=== PATIENT | female | born 1965 | race Caucasian/White ===

== ENCOUNTER → 2017-01-23 | Outpatient (CLI) | payer BC ==
--- NOTE | 2017-01-23 15:00 | US ---
EXAMINATION TYPE: US venous doppler duplex LE DATE OF EXAM: 01/23/2017 2:41 PM COMPARISON: NONE CLINICAL HISTORY: Swelling Left leg R22.42,R22.41 Swelling Rt leg. Right leg swelling. Left leg swel ling and numbness from upper thigh to knee. No blood thinners or hx of DVT. SIDE PERFORMED: Bilateral TECHNIQUE: The lower extremity deep venous system is examined utilizing real time linear array sonog vivain with graded compression, doppler sonography and color-flow sonography. VESSELS IMAGED: External Iliac Vein (EIV) Common Femoral Vein Deep Femoral Vein Greater Saphenous Vein * Femoral Vein Popliteal Vein Small Saphenous Vein * Proximal Calf Veins (* superficial vessels) Right Leg: Appears negative for DVT Left Leg: Appears negative for DVT No popliteal fossa lesion is seen. IMPRESSION: THIS EXAMINATION IS NEGATIVE FOR DVT IN BOTH LEGS.
== END | disposition home or self-care (01) ==
LOC: RADUSWWP 14:08
PROVIDERS: ATTEND Internal Medicine Hematology & Oncology
DX: M79.662 Pain in left lower leg (principal); M79.661 Pain in right lower leg; R22.43 Localized swelling, mass and lump, lower limb, bilateral
CPT/HCPCS: 93970

== ENCOUNTER → 2017-06-10 | Outpatient (CLI) | payer BC ==
--- NOTE | 2017-06-11 08:46 | MM ---
Reason for exam: additional evaluation requested from prior study. Last mammogram was performed 1 year ago. History: Patient is postmenopausal, has history of breast cancer at age 49, and history of other cancer. Lumpectomy, 2016. Radiation therapy, 2016. Malignant US biopsy breast VAD RT of the right breast, September 13, 2015. Took hormonal contraceptives for 10 years beginning at age 18. Taking antineoplastic beginning at age 50. Physical Findings: Nurse did not find any significant physical abnormalities on exam. MG 3D Diag Mammo W/Cad LOUIE Bilateral CC and MLO view(s) were taken. Prior study comparison: June 09, 2016, bilateral MG 3d diag mammo w/cad LOUIE. September 13, 2015, right breast MG diagnostic mammo RT wo CAD. There are scattered fibroglandular densities. Post therapy change in the right breast. These results were verbally communicated with the patient and result sheet given to the patient on 06/10/17. ASSESSMENT: Benign, BI-RAD 2 RECOMMENDATION: Follow-up diagnostic mammogram of both breasts in 1 year.
== END | disposition home or self-care (01) ==
LOC: RADMAMWWP 14:03
PROVIDERS: ATTEND Radiology Diagnostic Radiology
DX: Z08 Encounter for follow-up examination after completed treatment for malignant neoplasm (principal); Z85.3 Personal history of malignant neoplasm of breast
CPT/HCPCS: G0204; G0279

== ENCOUNTER 2017-10-27 11:15 | Emergency (ER) | payer BC ==
[2017-10-27 11:26] VITALS: TEMP 98.2
[2017-10-27] MEDS ORDERED: SODIUM CHLORIDE 0.9% 1,000 ML IV STA (11:39)
[2017-10-27] MEDS ORDERED: KETOROLAC 30 MG/ML 1 ML VIAL IVP STA (11:39)
[2017-10-27] MEDS ORDERED: ONDANSETRON 4 MG/2 ML VIAL IVP STA (11:39)
--- NOTE | 2017-10-27 11:44 | ED ---
General Adult HPI - General Chief complaint: Abdominal Pain Stated complaint: Poss.kidney stones Time Seen by Provider: 10/27/17 11:27 Source: patient, RN notes reviewed Mode of arrival: ambulatory Limitations: no limitations - History of Present Illness Initial comments: 51 yo female presents to the ER with chief complaint of right-sided abdominal pain. This week ago and over the last day or so she started to have some nausea with this. She went to the urgent care he now some blood in the urine and sent her here to evaluate for kidney stones. She denies any history of abdominal surgeries. Only past medical history is a history of breast cancer in the past. She states she hasn't had any burning or stinging with urination. She states that it's in the center of her abdomen in the right side. She was concerned due to her continued symptoms so she thought that she should be evaluated. Patient denies any recent fever, chills, shortness of breath, chest pain, back pain,vomiting, numbness or tingling, dysuria, constipation or diarrhea, headaches or visual changes, or any other current symptoms. - Related Data Home Medications Medication Instructions Recorded Confirmed Ascorbic Acid [Vitamin C] 500 mg PO DAILY 10/27/17 10/27/17 Cholecalciferol (Vitamin D3) 2,000 unit PO DAILY 10/27/17 10/27/17 [Vitamin D3] Mv-Min/Vit C/Glut/Lysine/Hc124 1 tab PO DAILY 10/27/17 10/27/17 [Airborne Tablet Chewable] Tamoxifen Citrate 20 mg PO DAILY 10/27/17 10/27/17 Allergies Allergy/AdvReac Type Severity Reaction Status Date / Time No Known Allergies Allergy Verified 10/27/17 11:30 Review of Systems ROS Statement: Those systems with pertinent positive or pertinent negative responses have been documented in the HPI. ROS Other: All systems not noted in ROS Statement are negative. Past Medical History Past Medical History: Cancer Additional Past Medical History / Comment(s): breast History of Any Multi-Drug Resistant Organisms: None Reported Additional Past Surgical History / Comment(s): lumpectomy, partial hysto 2005 Past Psychological History: No Psychological Hx Reported Smoking Status: Never smoker Past Alcohol Use History: None Reported Past Drug Use History: None Reported General Exam - General Exam Comments Initial Comments: General: The patient is awake and alert, in no distress, and does not appear acutely ill. Eye: Pupils are equal, round and reactive to light, extra-ocular movements are intact; there is normal conjunctiva bilaterally. No signs of icterus. Ears, nose, mouth and throat: There are moist mucous membranes and no oral lesions. Neck: The neck is supple, there is no tenderness. Cardiovascular: There is a regular rate and rhythm. No murmur, rub or gallop is appreciated. Respiratory: Lungs are clear to auscultation, respirations are non-labored, breath sounds are equal. No wheezes, stridor, rales, or rhonchi. Gastrointestinal: Soft, non-distended, mild epigastric tenderness of the abdomen without masses or organomegaly noted. There is no rebound or guarding present. No CVA tenderness. Bowel sounds are unremarkable. Back: There is no tenderness to palpation in the midline. There is no obvious deformity. No rashes noted. Musculoskeletal: Normal ROM, no tenderness, There is no pedal edema. There is no calf tenderness or swelling. Sensation intact. Pulses equal bilaterally 2+. Neurological: CN II-XII intact, There are no obvious motor or sensory deficits. Coordination appears grossly intact. Speech is normal. Skin: Skin is warm and dry and no rashes or lesions are noted. Psychiatric: Cooperative, appropriate mood & affect, normal judgment. Limitations: no limitations Course Vital Signs 10/27/17 11:22 Temperature 98.2 F Pulse Rate 75 Respiratory 18 Rate Blood Pressure 160/77 O2 Sat by Pulse 98 Oximetry Medical Decision Making - Medical Decision Making 51-year-old female presents emergency department with chief complaint of abdominal pain. At this time CAT scan has been reviewed. At this time we did discuss follow-up. We did discuss the finding of biliary sludge we did discuss return parameters and lab work. The patient stated that she understood she is reviewed with follow-up and all questions have been answered. This time the patient will be discharged home. - Lab Data Result diagrams: 10/27/17 11:50 10/27/17 11:50 Lab Results 10/27/17 10/27/17 10/27/17 Range/Units 11:50 11:50 11:50 WBC 5.4 (3.8-10.6) k/uL RBC 4.60 (3.80-5.40) m/uL Hgb 13.7 (11.4-16.0) gm/dL Hct 41.3 (34.0-46.0) % MCV 89.8 (80.0-100.0) fL MCH 29.8 (25.0-35.0) pg MCHC 33.1 (31.0-37.0) g/dL RDW 12.7 (11.5-15.5) % Plt Count 223 (150-450) k/uL Neutrophils % 57 % Lymphocytes % 32 % Monocytes % 6 % Eosinophils % 2 % Basophils % 1 % Neutrophils # 3.1 (1.3-7.7) k/uL Lymphocytes # 1.7 (1.0-4.8) k/uL Monocytes # 0.3 (0-1.0) k/uL Eosinophils # 0.1 (0-0.7) k/uL Basophils # 0.0 (0-0.2) k/uL Sodium 141 (137-145) mmol/L Potassium 4.4 (3.5-5.1) mmol/L Chloride 104 (98-107) mmol/L Carbon Dioxide 28 (22-30) mmol/L Anion Gap 9 mmol/L BUN 15 (7-17) mg/dL Creatinine 0.95 (0.52-1.04) mg/dL Est GFR (MDRD) Af Amer >60 (>60 ml/min/1.73 sqM) Est GFR (MDRD) Non-Af >60 (>60 ml/min/1.73 sqM) Glucose 103 H (74-99) mg/dL Plasma Lactic Acid Zeke 1.1 (0.7-2.0) mmol/L Calcium 9.6 (8.4-10.2) mg/dL Total Bilirubin 0.5 (0.2-1.3) mg/dL AST 31 (14-36) U/L ALT 36 (9-52) U/L Alkaline Phosphatase 75 (38-126) U/L Total Protein 7.0 (6.3-8.2) g/dL Albumin 4.2 (3.5-5.0) g/dL Amylase 33 (30-110) U/L Lipase 48 (23-300) U/L Urine Color Urine Appearance (Clear) Urine pH (5.0-8.0) Ur Specific Ethan (1.001-1.035) Urine Protein (Negative) Urine Glucose (UA) (Negative) Urine Ketones (Negative) Urine Blood (Negative) Urine Nitrite (Negative) Urine Bilirubin (Negative) Urine Urobilinogen (<2.0) mg/dL Ur Leukocyte Esterase (Negative) Urine WBC (0-5) /hpf Ur Squamous Epith Cells (0-4) /hpf 10/27/17 Range/Units 11:50 WBC (3.8-10.6) k/uL RBC (3.80-5.40) m/uL Hgb (11.4-16.0) gm/dL Hct (34.0-46.0) % MCV (80.0-100.0) fL MCH (25.0-35.0) pg MCHC (31.0-37.0) g/dL RDW (11.5-15.5) % Plt Count (150-450) k/uL Neutrophils % % Lymphocytes % % Monocytes % % Eosinophils % % Basophils % % Neutrophils # (1.3-7.7) k/uL Lymphocytes # (1.0-4.8) k/uL Monocytes # (0-1.0) k/uL Eosinophils # (0-0.7) k/uL Basophils # (0-0.2) k/uL Sodium (137-145) mmol/L Potassium (3.5-5.1) mmol/L Chloride (98-107) mmol/L Carbon Dioxide (22-30) mmol/L Anion Gap mmol/L BUN (7-17) mg/dL Creatinine (0.52-1.04) mg/dL Est GFR (MDRD) Af Amer (>60 ml/min/1.73 sqM) Est GFR (MDRD) Non-Af (>60 ml/min/1.73 sqM) Glucose (74-99) mg/dL Plasma Lactic Acid Zeke (0.7-2.0) mmol/L Calcium (8.4-10.2) mg/dL Total Bilirubin (0.2-1.3) mg/dL AST (14-36) U/L ALT (9-52) U/L Alkaline Phosphatase (38-126) U/L Total Protein (6.3-8.2) g/dL Albumin (3.5-5.0) g/dL Amylase (30-110) U/L Lipase (23-300) U/L Urine Color Yellow Urine Appearance Clear (Clear) Urine pH 6.5 (5.0-8.0) Ur Specific Ethan 1.014 (1.001-1.035) Urine Protein Negative (Negative) Urine Glucose (UA) Negative (Negative) Urine Ketones 1+ H (Negative) Urine Blood Negative (Negative) Urine Nitrite Negative (Negative) Urine Bilirubin Negative (Negative) Urine Urobilinogen <2.0 (<2.0) mg/dL Ur Leukocyte Esterase Small H (Negative) Urine WBC 1 (0-5) /hpf Ur Squamous Epith Cells 3 (0-4) /hpf - Radiology Data Radiology results: report reviewed, image reviewed Disposition Clinical Impression: Hematuria, Biliary sludge Disposition: HOME SELF-CARE Condition: Stable Instructions: Biliary Colic (ED) Additional Instructions: Please use medication as discussed. Please follow up with family doctor if symptoms have not improved over the next two days. Please return to the emergency room if your symptoms increase or worsen or for any other concerns. Referrals: Lizzette Galindo DO [Primary Care Provider] - 1-2 days Phani Boyer MD [STAFF PHYSICIAN] - 1-2 days Time of Disposition: 12:36
[2017-10-27 12:01] LABS: Basophils % (A) 1 %; Eosinophils # (A) 0.1 k/uL (0-0.7); Eosinophils % (A) 2 %; HCT 41.3 % (34.0-46.0); HGB 13.7 gm/dL (11.4-16.0); Lymphocytes # (A) 1.7 k/uL (1.0-4.8); Lymphocytes % (A) 32 %; MCH 29.8 pg (25.0-35.0); MCHC 33.1 g/dL (31.0-37.0); MCV 89.8 fL (80.0-100.0); Monocytes # (A) 0.3 k/uL (0-1.0); Monocytes % (A) 6 %; Neutrophils # (A) 3.1 k/uL (1.3-7.7); Neutrophils % (A) 57 %; Platelet Count 223 k/uL (150-450); RDW 12.7 % (11.5-15.5); WBC 5.4 k/uL (3.8-10.6)
[2017-10-27 12:05] LABS: Appearance,Urine Clear (Clear); Bilirubin,Urine Negative (Negative); Blood,Urine Negative (Negative); Color,Urine Yellow; Glucose,Urine (UA) Negative (Negative); Ketones,Urine 1+ (Negative); Leukocyte Esterase,Urine Small (Negative); Nitrite,Urine Negative (Negative); PH, Urine 6.5 (5.0-8.0); Protein,Urine Negative (Negative); Specific Gravity,Urine 1.014 (1.001-1.035); Squamous Epithelial Cell,Urine 3 /hpf (0-4); Urobilinogen,Urine <2.0 mg/dL (<2.0); WBC,Urine 1 /hpf (0-5)
[2017-10-27 12:19] LABS: ALT 36 U/L (9-52); AST 31 U/L (14-36); Albumin 4.2 g/dL (3.5-5.0); Alkaline Phosphatase 75 U/L (38-126); Amylase 33 U/L (30-110); Anion Gap 9 mmol/L; Blood Urea Nitrogen 15 mg/dL (7-17); Calcium 9.6 mg/dL (8.4-10.2); Carbon Dioxide 28 mmol/L (22-30); Chloride 104 mmol/L (98-107); Glucose 103 mg/dL (74-99); Lipase 48 U/L (23-300); Potassium 4.4 mmol/L (3.5-5.1); Sodium 141 mmol/L (137-145); Total Bilirubin 0.5 mg/dL (0.2-1.3)
--- NOTE | 2017-10-27 12:25 | CT ---
EXAMINATION TYPE: CT abdomen pelvis wo con DATE OF EXAM: 10/27/2017 COMPARISON: NONE HISTORY: Renal stone CT DLP: 718.50 mGycm Automated exposure control for dose reduction was used. TECHNIQUE: Helical acquisition of images was performed from the lung bases through the pelvis. FINDINGS: LUNG BASES: Minimal bibasilar subsegmental dependent atelectasis is seen. LIVER/GB: There is diffuse hypoattenuation of the hepatic parenchyma, most commonly related to hepati c steatosis that is geographically lower than others throughout the liver. Increased layering signal within the gallbladder dependently relates to biliary sludge. PANCREAS: Mild pancreatic parenchymal atrophy. No ductal dilatation. SPLEEN: No significant abnormality is seen. ADRENALS: No significant abnormality is seen. KIDNEYS: No hydronephrosis or nephrolithiasis. Multiple phleboliths are noted within the low pelvis a djacent to the ureterovesicular junctions. FREE AIR: No free air is visualized ADENOPATHY: None visualized URINARY BLADDER: No significant abnormality is seen. OSSEOUS STRUCTURES: Mild multilevel degenerative changes of the thoracic spine and lumbosacral spine are noted. Mild levoconvex scoliotic curvature of the lumbar spine are seen. BOWEL: Scattered colonic diverticula are seen without pericolonic fat stranding. OTHER: Small fat filled umbilical hernia is present. IMPRESSION: 1. NO EVIDENCE OF NEPHROLITHIASIS OR HYDRONEPHROSIS. CONSIDERING THE PATIENT'S SYMPTOMS OF MICROSCOPI C HEMATURIA NONEMERGENT CT UROGRAM COULD BE PERFORMED FOR FURTHER EVALUATION. 2. GEOGRAPHIC HEPATIC STEATOSIS APPEARING MODERATE IN DEGREE. 3. BILIARY SLUDGE. NO SECONDARY SIGNS OF ACUTE CHOLECYSTITIS. 4. COLONIC DIVERTICULOSIS WITHOUT EVIDENCE OF DIVERTICULITIS.
[2017-10-27 12:47] VITALS: BP 140/73; PULSE 77; RESP 16
== END 2017-10-27 12:48 | disposition home or self-care (01) ==
LOC: EC 11:15
DX: K82.9 Disease of gallbladder, unspecified (principal); R31.9 Hematuria, unspecified; R10.9 Unspecified abdominal pain; Z85.3 Personal history of malignant neoplasm of breast; Z79.899 Other long term (current) drug therapy; Z53.29 Procedure and treatment not carried out because of patient's decision for other reasons; Z98.890 Other specified postprocedural states
CPT/HCPCS: 36415; 74176; 80053; 81001; 82150; 83605; 83690; 85025; 87040; 87086; 96360; 99284

== ENCOUNTER 2017-11-02 08:41 | Day surgery (SDC) | payer BC ==
[2017-10-29 09:47] VITALS: BMI 34.3
[~2017-11-02 08:41] MED LIST: DEXAMETHASONE SOD PHOSPHATE 10 MG/ML 1 ML VIAL IV ONE; HEPARIN SODIUM,PORCINE 5,000 UNIT/ML 1 ML VIAL SQ ONE; LACTATED RINGERS 1,000 ML IV SCH; MIDAZOLAM 2 MG/2 ML VIAL IV PRN; MORPHINE SULFATE 4 MG/ML SYRINGE IV PRN; ONDANSETRON 4 MG/2 ML VIAL IVP ONE; SCOPOLAMINE 1.5MG/72HR PATCH TRANSDERM ONE; ceFAZolin IN SWFI 2 GM/20 ML SYRINGE IVP ONE
--- NOTE | 2017-11-02 09:42 | P.GSHP ---
History of Present Illness H&P Date: 11/02/17 Chief Complaint: Right upper quadrant pain This a 52-year-old female referred from Dr. George. Patient presents today for laparoscopic cholecystectomy. She's had complaints of right quadrant pain. Her recent CAT scan shows evidence of cholelithiasis and biliary sludge. Past Medical History Past Medical History: Cancer Additional Past Medical History / Comment(s): Rt. breast History of Any Multi-Drug Resistant Organisms: None Reported Past Surgical History: Breast Surgery, Hysterectomy Additional Past Surgical History / Comment(s): Rt. lumpectomy, Past Anesthesia/Blood Transfusion Reactions: Postoperative Nausea & Vomiting ( PONV) Additional Past Anesthesia/Blood Transfusion Reaction / Comment(s): "hard time waking up" Smoking Status: Never smoker - Past Family History Father Family Medical History: Cancer Additional Family Medical History / Comment(s): lung Medications and Allergies Home Medications Medication Instructions Recorded Confirmed Type Ascorbic Acid [Vitamin C] 500 mg PO DAILY 10/27/17 10/29/17 History Cholecalciferol (Vitamin D3) 2,000 unit PO DAILY 10/27/17 10/29/17 History [Vitamin D3] Mv-Min/Vit C/Glut/Lysine/Hc124 1 tab PO DAILY 10/27/17 10/29/17 History [Airborne Tablet Chewable] RX: Tamoxifen Citrate 20 mg PO DAILY 10/27/17 10/29/17 History Cipro 1 tab PO DIRECTED 10/29/17 History Allergies Allergy/AdvReac Type Severity Reaction Status Date / Time PAIN MEDS AdvReac Nausea & Uncoded 10/29/17 09:48 Vomiting Surgical - Exam - General well developed, no distress - Eyes PERRL - ENT normal pinna - Neck no masses - Respiratory normal expansion - Cardiovascular Rhythm: regular - Abdomen Mild right upper quadrant pain Abdomen: soft Assessment and Plan Assessment: Cholelithiasis Chronic cholecystitis We'll perform laparoscopic cholecystectomy
[2017-11-02] MEDS ORDERED: LIDOCAINE 1% 20 ML VIAL (10MG/ML) FOR IV START INTRADERMA ONE (09:50)
[2017-11-02] MEDS ORDERED: KETOROLAC 30 MG/ML 1 ML VIAL IVP ONE (10:00)
[2017-11-02] MEDS ORDERED: fentaNYL (PF) 50 MCG/ML 2 ML AMP ONE (10:02)
[2017-11-02] MEDS ORDERED: NEOSTIGMINE 1 MG/ML 10 ML VIAL ONE (10:02)
[2017-11-02] MEDS ORDERED: PROPOFOL 10 MG/ML 20 ML VIAL IV ONE (10:02)
[2017-11-02] MEDS ORDERED: KETAMINE 10 MG/ML 20 ML VIAL ONE (10:02)
[2017-11-02] MEDS ORDERED: ROCURONIUM BROMIDE 10 MG/ML 10 ML VIAL IV ONE (10:02)
[2017-11-02] MEDS ORDERED: LIDOCAINE 1% INJ 10MG/ML (20 ML MDV) ONE (10:02)
[2017-11-02] MEDS ORDERED: MIDAZOLAM 2 MG/2 ML VIAL ONE (10:02)
[2017-11-02] MEDS ORDERED: SUCCINYLCHOLINE CHLORIDE 100 MG/5 ML SYR IV ONE (10:02)
[2017-11-02] MEDS ORDERED: GLYCOPYRROLATE 0.2 MG/ML 2 ML VIAL ONE (10:02)
[2017-11-02] MEDS ORDERED: ACETAMINOPHEN IV (For NPO) 1,000 MG in EMPTY BAG 1 BAG IVPB STA (10:07)
[2017-11-02] MEDS ORDERED: BUPIVACAINE (PF) 0.25% 30 ML VIAL SQ ONE ×2 (10:18→10:24)
[2017-11-02] MEDS ORDERED: LACTATED RINGERS 1,000 ML IV ONE (10:40)
--- NOTE | 2017-11-02 10:54 | P.OP ---
Date of Procedure: 11/02/17 Preoperative Diagnosis: Cholecystitis Postoperative Diagnosis: Cholecystitis Procedure(s) Performed: Laparoscopic cholecystectomy Anesthesia: CARMELLA Surgeon: Phani Boyer Estimated Blood Loss (ml): 5 Pathology: other (All bladder) Condition: stable Disposition: PACU Description of Procedure: The patient was placed on the operating table. The patient received a general endotracheal tube anesthesia. The patients abdomen was prepped and draped in the usual sterile fashion. Through an infraumbilical stab incision, the fascia of the anterior abdominal wall was grasped with a pair of Kochers and then the Veress needle was placed in the peritoneal cavity. Position of the Veress needle was confirmed with positive drop test. The abdomen was then insufflated. After adequate insufflation, the 10 mm trocar was placed in the peritoneal cavity. Following this the laparoscope was placed in the peritoneal cavity. The patient was placed in the head-up, right side up position and then a 5 mm trocar was placed in the right lateral and right subcostal position under direct visualization. A 8 mm trocar was placed in the epigastric position. The gallbladder was grasped in the fundus and infundibulum. Traction on the gallbladder was placed in the lateral and the cephalad positions. The triangle of Calot was visualized.. The cystic duct was bluntly dissected until the union of the cystic duct and common bile duct was seen. The cystic duct was then divided and sealed with the Harmonic scissors. A PDS Endoloop was then placed throughout the cystic duct stump. The cystic artery divided and sealed with the Harmonic scissors. The gallbladder was then removed from the liver bed using Harmonic scissors. The gallbladder was then extracted through the epigastric port site. Operative field was checked for any bleeding spots and Harmonic scissors was used to coagulate the liver bed. The abdomen was irrigated. The trocars were removed. The skin was closed using interrupted 3-0 Vicryl suture. Dermabond dressing were applied. The patient tolerated the procedure well.
[2017-11-02 11:06] VITALS: TEMP 96.4
[2017-11-02 13:19] VITALS: RESP 18
[2017-11-02 13:44] VITALS: BP 147/83; PULSE 76
== END 2017-11-02 14:10 | disposition home or self-care (01) ==
LOC: OR 08:41
PROVIDERS: ATTEND Surgery
DX: K81.1 Chronic cholecystitis (principal); Z85.3 Personal history of malignant neoplasm of breast; Z90.710 Acquired absence of both cervix and uterus; Z79.2 Long term (current) use of antibiotics; Z79.810 Long term (current) use of selective estrogen receptor modulators (SERMs); Z88.5 Allergy status to narcotic agent
CPT/HCPCS: 88304; 47562; J2250; J1100; J2710; J0690; J2405; J2001; J3010; J1885; J0131; J0330; J2704

== ENCOUNTER → 2018-04-19 | Outpatient (CLI) | payer BC ==
--- NOTE | 2018-04-20 08:07 | CT ---
EXAMINATION TYPE: CT abdomen pelvis w con DATE OF EXAM: 04/19/2018 COMPARISON: 10/27/2017 HISTORY: R10.84 Abdominal pain,R11.2 Nausea/Vomiting CONTRAST: 100ml/eaw318 and oral contrast FINDINGS: LUNG BASES-: No visible nodule. No infiltrate. LIVER/GB: The gallbladder surgically absent. Mild hepatic steatosis. No space occupying hepatic le adarsh. Biliary tree is of normal caliber. PANCREAS: No inflammation. No distinct mass. SPLEEN: No splenic enlargement. No lesion seen. ADRENALS: No nodule. No thickening. KIDNEYS/BLADDER: No hydronephrosis. No nephrolithiasis. No distinct renal mass. Urinary bladder g rossly unremarkable. BOWEL: Normal appendix. Normal bowel caliber. No inflammation. Colonic diverticulosis without diver ticulitis. GENITAL ORGANS: No gross abnormality. LYMPH NODES: No greater than 1cm abdominal or pelvic lymph nodes are appreciated. AORTA: No significant abnormality. OSSEOUS STRUCTURES: No significant abnormality is seen. OTHER: No significant additional abnormality is seen. IMPRESSION: 1. Hepatic steatosis. 2. Colonic diverticulosis without diverticulitis.
== END | disposition home or self-care (01) ==
LOC: RADCTMAIN 17:22
PROVIDERS: ATTEND Internal Medicine Hematology & Oncology
DX: K57.30 Diverticulosis of large intestine without perforation or abscess without bleeding (principal); K76.0 Fatty (change of) liver, not elsewhere classified; R11.2 Nausea with vomiting, unspecified
CPT/HCPCS: 74177; Q9967

== ENCOUNTER → 2018-06-24 | Outpatient (CLI) | payer BC ==
--- NOTE | 2018-06-24 14:36 | MM ---
Reason for exam: additional evaluation requested from prior study. Last mammogram was performed 1 year ago. History: Patient is postmenopausal, has history of breast cancer at age 49, and history of other cancer. Lumpectomy, 2016. Radiation therapy, 2016. Malignant US biopsy breast VAD RT of the right breast, September 13, 2015. Took hormonal contraceptives for 10 years beginning at age 18. Taking antineoplastic beginning at age 50. Physical Findings: Nurse Summary: 3cm nodule in the right breast at 1 o'clock (nurse anton). MG 3D Diag Mammo W/Cad LOUIE Bilateral CC and MLO view(s) were taken. Prior study comparison: June 10, 2017, bilateral MG 3d diag mammo w/cad LOUIE. June 09, 2016, bilateral MG 3d diag mammo w/cad LOUIE. There are scattered fibroglandular densities. Finding: Architectural distortion in the right breast consistent with known lumpectomy with stable 3.2cm oval mass, new from 2017. There is a chronic nodularity in the left breast. There is no discrete abnormality. These results were verbally communicated with the patient and result sheet given to the patient on 06/24/18. ASSESSMENT: Incomplete: need additional imaging evaluation, BI-RAD 0 RECOMMENDATION: Ultrasound of the right breast.
--- NOTE | 2018-06-24 14:38 | USB ---
Reason for exam: additional evaluation requested from abnormal screening. History: Patient is postmenopausal, has history of breast cancer at age 49, and history of other cancer. Lumpectomy, 2016. Radiation therapy, 2016. Malignant US biopsy breast VAD RT of the right breast, September 13, 2015. Took hormonal contraceptives for 10 years beginning at age 18. Taking antineoplastic beginning at age 50. US Breast Limited RT Technologist: Tyra Sow, RT (R)(M) Right limited breast ultrasound including focal area of concern, retroareolar and axilla demonstrates a 3.1 x 2.5 x 2.3cm solid, hypoechoic lesion at 2 o'clock. These results were verbally communicated with the patient and result sheet given to the patient on 06/24/18. ASSESSMENT: Suspicious, BI-RAD 4 RECOMMENDATION: Ultrasound core biopsy of the right breast. (Correlate with margins from surgery in 2016. Cannot exclude local recurrence). Called Dr. West with mammographic findings and has scheduled an appointment for the patient for 06/28/18 at 3:[address] Mitchell. PRELIMINARY REPORT CALLED AND FAXED TO DR. MITCHELL ON 06/24/18.
== END | disposition home or self-care (01) ==
LOC: RADMAMWWP 10:31
PROVIDERS: ATTEND Radiology Diagnostic Radiology
DX: C50.411 Malignant neoplasm of upper-outer quadrant of right female breast (principal); R92.8 Other abnormal and inconclusive findings on diagnostic imaging of breast
CPT/HCPCS: 77062; 77066

== ENCOUNTER 2018-06-29 06:37 | Day surgery (SDC) | payer BC ==
[2018-06-25 10:03] VITALS: BMI 34.3
[2018-06-29 07:19] VITALS: RESP 18; TEMP 98.5
[2018-06-29] MEDS ORDERED: LACTATED RINGERS 1,000 ML IV ONE (07:21)
[2018-06-29] MEDS ORDERED: PROPOFOL 10 MG/ML 20 ML VIAL IV ONE (07:31)
[2018-06-29] MEDS ORDERED: LIDOCAINE 1% INJ 10MG/ML (20 ML MDV) ONE (07:31)
--- NOTE | 2018-06-29 08:01 | P.OP ---
Date of Procedure: 06/29/18 Preoperative Diagnosis: GERD Colon cancer screening Postoperative Diagnosis: Gastritis Duodenitis Diverticulosis Internal hemorrhoids Procedure(s) Performed: Esophagogastroduodenoscopy with biopsy Colonoscopy Surgeon: Tere Cerda Pathology: other (Biopsies of esophagus, antrum, duodenum) Condition: stable Disposition: same day Indications for Procedure: 52-year-old female presented for elective upper and lower endoscopy. The patient is having the upper endoscopy due to symptoms of reflux. The patient is also 52 years of age and has never had a colonoscopy. Colonoscopy is being performed for colon cancer screening. Risks, benefits and alternatives were provided to the patient. The patient did provide consent prior to attending the endoscopy suite. Operative Findings: Gastritis and duodenitis changes were noted in the upper endoscopy. Colonoscopy did reveal diverticulosis. Description of Procedure: The patient was brought into the endoscopy suite and placed in left lateral decubitus position. Sedation was provided by anesthesia and the endoscope was placed into the oropharynx past the arytenoids and advanced to the level of the second portion of the duodenum. The scope was then slowly retrieved into the first portion of the duodenum. Duodenitis changes were noted and biopsies were taken. The scope was then retrieved into the antrum. Gastritis changes were noted and biopsy was taken. A retroflexed view was then performed and the gastric folds were noted to distend appropriately. There were no evidence of any masses within the stomach. There is no significant hiatal hernia. The scope was then slowly withdrawn into the esophagus. The esophagus appeared endoscopically normal. Biopsies were taken. The scope was then fully withdrawn. Digital rectal exam was then performed and internal hemorrhoids were palpated. An endoscope was then placed in the rectum and advanced to the level of the cecum as identified by landmarks including the appendiceal orifice and the ileocecal valve. The prep was good. The colonoscope was then slowly withdrawn , examining for any mucosal abnormalities. The cecum, ascending, transverse, descending and sigmoid colon were visualized adequately. There was notable diverticulosis scattered throughout the colon. There were no obvious inflammatory changes or polypoid lesions about the colon. There was no obvious source of bleeding. Retroflexion was performed in the rectum and internal hemorrhoids were visible. Excess air was removed, the colonoscope was withdrawn and the procedure terminated. The patient was then transferred to the postanesthesia care unit in stable condition. Repeat colonoscopy should be performed in 10 years.
[2018-06-29] MEDS ORDERED: HYDROmorphone 0.5 MG/0.5 ML SYRINGE IVP PRN ×2 (08:05)
[2018-06-29] MEDS ORDERED: LACTATED RINGERS 1,000 ML IV SCH ×2 (08:05)
[2018-06-29] MEDS ORDERED: LIDOCAINE 1% 20 ML VIAL (10MG/ML) FOR IV START INTRADERMA PRN ×2 (08:05)
[2018-06-29 08:29] VITALS: BP 135/87; PULSE 64
== END 2018-06-29 08:49 | disposition home or self-care (01) ==
LOC: ORWHC2ENDO 06:37
PROVIDERS: ATTEND Surgery
DX: Z12.11 Encounter for screening for malignant neoplasm of colon (principal); K21.0 Gastro-esophageal reflux disease with esophagitis; K29.50 Unspecified chronic gastritis without bleeding; K29.80 Duodenitis without bleeding; K57.30 Diverticulosis of large intestine without perforation or abscess without bleeding; K64.8 Other hemorrhoids; Z85.3 Personal history of malignant neoplasm of breast; Z79.899 Other long term (current) drug therapy; Z88.6 Allergy status to analgesic agent
CPT/HCPCS: 88305; 43239; J2001; J2704; G0121

== ENCOUNTER → 2018-07-06 | Day surgery (SDC) | payer BC ==
[2018-07-06 09:41] VITALS: TEMP 99.2; BMI 34.3
[2018-07-06 11:43] VITALS: BP 137/86; PULSE 76
--- NOTE | 2018-07-06 14:42 | USB ---
EXAMINATION TYPE: US breast needle core RT, US breast aspiration ea add RT DATE OF EXAM: 07/06/2018 HISTORY: Right breast mass. FINDINGS: Maximal barrier technique was utilized. The skin overlying a suitable path to the patient's mass was localized with ultrasound and the overlying skin prepped and draped. Ultrasound was utilized with sterile technique. Lidocaine was used for local anesthesia. A skin lane was made with a scalpel. An 18-gauge needle was advanced under direct ultrasound guidance and core specimen obtained of the mass, minimal retrieved tissue noted. 23- gauge needle was then advanced and aspirated fluid and approximately 3 cc of brownish fluid sent for laboratory analysis along with the minimal core specimen. Following the procedure, hemostasis achieved and the patient is discharged in stable condition without complication. IMPRESSION:STATUS POST ULTRASOUND GUIDED CORE BIOPSY and aspiration OF right breast MASS, PATHOLOGY IS PENDING. THIS PROCEDURE IS PERFORMED BY THE UNDERSIGNED. Pathology Results: Benign BREAST, RIGHT, ASPIRATE: Degenerated blood and histiocytes consistent with cyst contents. No cytologically malignant cells identified. BREAST, RIGHT, CORE BIOPSY: Scanty fragments of blood and an isolated fragment of benign fibrous tissue with chronic inflammation. Severely limited sample. Recommendation Follow up mammogram of the right breast in 6 months. MTDD
== END | disposition home or self-care (01) ==
LOC: RADUSWWP 08:52
PROVIDERS: ATTEND Surgery
DX: N61.0 Mastitis without abscess (principal)
CPT/HCPCS: 88305; 88173; 76942; 19000; 19083; J2001

== ENCOUNTER → 2018-09-01 | Outpatient (CLI) | payer BC ==
--- NOTE | 2018-09-01 20:22 | BD ---
EXAMINATION TYPE: Axial Bone Density DATE OF EXAM: 09/01/2018 CLINICAL HISTORY: 52-year-old female carcinoma of upper quadrant, postmenopausal screening Height: 64 Weight: 204 FRAX RISK QUESTIONS: Alcohol (3 or more units per day): no Family History (Parent hip fracture): no Glucocorticoids (More than 3mos): no (Ex: prednisone, prednisolone, methylprednisolone, dexamethasone, and hydrocortisone). History of Fracture in Adulthood: no Secondary Osteoporosis: 1. Type 1 Diabetes: no 2. Hyperthyroidism: no 3. Menopause before 45: hysterectomy age 40 4. Malnutrition: no 5. Chronic liver disease: no Rheumatoid Arthritis: no Current Tobacco Use: no RISK FACTORS HISTORY OF: Family History of Osteoporosis: states no Active: yes Diet low in dairy products/other sources of calcium: servings several times a week Postmenopausal woman: yes Take estrogen and/or progesterone medications: not now How long: hormonal contraceptives about 10 years Lost more than 2 inches in height since high school: no Frequent falls: no Poor Health: no Hyperparathyroidism: no Adrenal Insufficiency: no MEDICATIONS: Prednisone or other steroids: no Thyroid Medications:no Osteoporosis Medications:no Additional Medications: Tamoxifen, calcium Additional History: Breast CA age 49 EXAM MEASUREMENTS: Bone mineral densitometry was performed using the [email or web address] System. Bone mineral density as measured about the Lumbar spine is: ----- L1-L4(G/cm2): 1.453 T Score Values are as follows: ----- L2: 1.9 ----- L3: 2.8 ----- L4: 2.6 ----- L1-L4: 2.3 Bone mineral density BASELINE Bone mineral density about the R hip (g/cm2): 1.128 Bone mineral density about the L hip (g/cm2): 1.119 T Score values are as follows: -----R Neck: 0.6 -----L Neck: 0.6 -----R Total: 1.8 -----L Total: 1.7 Bone mineral density BASELINE IMPRESSION: Normal (Values between +1 and -1 indicate normal bone mass). Consider repeating this study in 5 year s or sooner if there is some new clinical indication. NOTE: T-SCORE=SD OF THE YOUNG ADULT MEAN.
== END | disposition home or self-care (01) ==
LOC: RADBDWWP 08:19
PROVIDERS: ATTEND Internal Medicine Hematology & Oncology
DX: C50.411 Malignant neoplasm of upper-outer quadrant of right female breast (principal)
CPT/HCPCS: 77080

== ENCOUNTER → 2019-01-13 | Outpatient (CLI) | payer BC ==
--- NOTE | 2019-01-14 09:09 | USB ---
Reason for exam: clinical finding. History: Patient is postmenopausal, has history of breast cancer at age 49, and history of other cancer. Benign US breast aspiration single RT of the right breast, July 06, 2018. Benign US breast needle core RT of the right breast, July 06, 2018. Lumpectomy, 2016. Radiation therapy, 2016. Malignant US biopsy breast VAD RT of the right breast, September 13, 2015. Took hormonal contraceptives for 10 years beginning at age 18. Taking antineoplastic beginning at age 50. Physical Findings: Nurse Summary: hard palpable lump at lumpectomy scar right breast upper inner quadrant, patients states lump increased in size (nurse mj). US Breast RT Right complete breast ultrasound includes all four quadrants, the retroareolar region and axilla. Finding demonstrates a 3.3 x 2.3 x 2.3cm oval, solid, hypoechoic lesion at 2 o'clock BB versus 3.1 x 2.3 x 2.3cm on 06/24/19, previously biopsied, with through transmission, chronic hematoma or scar are possible. Diagnostic follow up in 5 months, back on schedule. These results were verbally communicated with the patient and result sheet given to the patient on 01/13/19. ASSESSMENT: Probably benign, BI-RAD 3 RECOMMENDATION: Follow-up diagnostic mammogram of both breasts in 5 months. Back on schedule for June 2019.
== END ==
LOC: RADUSWWP 15:22
PROVIDERS: ATTEND Surgery
DX: C50.911 Malignant neoplasm of unspecified site of right female breast (principal)

== ENCOUNTER → 2019-06-28 | Outpatient (CLI) | payer BC ==
--- NOTE | 2019-06-28 14:23 | MM ---
Reason for exam: additional evaluation requested from prior study. Last mammogram was performed 1 year ago. History: Patient is postmenopausal, has history of breast cancer at age 49, and history of other cancer. Benign US breast aspiration single RT of the right breast, July 06, 2018. Benign US breast needle core RT of the right breast, July 06, 2018. Lumpectomy, 2016. Radiation therapy, 2016. Malignant US biopsy breast VAD RT of the right breast, September 13, 2015. Took hormonal contraceptives for 10 years beginning at age 18. Taking antineoplastic beginning at age 50. Physical Findings: Nurse did not find any significant physical abnormalities on exam. MG 3D Diag Mammo W/Cad LOUIE Bilateral CC and MLO view(s) were taken. Prior study comparison: June 24, 2018, bilateral MG 3d diag mammo w/cad LOUIE. June 10, 2017, bilateral MG 3d diag mammo w/cad LOUIE. There are scattered fibroglandular densities. Findin mm oval architectural distortion in the posterior middle position of the right breast. There is a chronic nodularity in the left breast. There is no dominant lesion. There is no discrete abnormality. These results were verbally communicated with the patient and result sheet given to the patient on 06/28/19. ASSESSMENT: Benign, BI-RAD 2 RECOMMENDATION: Follow-up diagnostic mammogram of both breasts in 1 year.
== END | disposition home or self-care (01) ==
LOC: RADMAMWWP 12:43
PROVIDERS: ATTEND Radiology Diagnostic Radiology
DX: C50.911 Malignant neoplasm of unspecified site of right female breast (principal)
CPT/HCPCS: 77062; 77066

== ENCOUNTER → 2020-07-09 | Outpatient (CLI) | payer BC ==
--- NOTE | 2020-07-09 12:12 | MM ---
Reason for exam: additional evaluation requested from prior study. Last mammogram was performed 1 year ago. History: Patient is postmenopausal, has history of breast cancer at age 49, and history of other cancer. Benign US breast aspiration single RT of the right breast, July 06, 2018. Benign US breast needle core RT of the right breast, July 06, 2018. Lumpectomy, 2016. Radiation therapy, 2016. Malignant US biopsy breast VAD RT of the right breast, September 13, 2015. Took hormonal contraceptives for 10 years beginning at age 18. Taking antineoplastic for 5 years. Physical Findings: Nurse Summary: 2 x 3cm nodule in the right breast at lumpectomy site (nurse ts). MG 3D Diag Mammo W/Cad LOUIE Bilateral CC and MLO view(s) were taken. Prior study comparison: June 28, 2019, bilateral MG 3d diag mammo w/cad LOUIE. June 24, 2018, bilateral MG 3d diag mammo w/cad LOUIE. Finding: There is a high density, circumscribed oval mass in the upper inner quadrant, middle position of the right breast and surgical clips. Post surgical changes in the right breast. No significant changes in finding since June 28, 2019 and June 24, 2018. These results were verbally communicated with the patient and result sheet given to the patient on 07/09/20. ASSESSMENT: Benign, BI-RAD 2 RECOMMENDATION: Routine screening mammogram of both breasts in 1 year. Manage patient on a clinical basis.
== END | disposition home or self-care (01) ==
LOC: RADMAMWWP 10:13
PROVIDERS: ATTEND Radiology Diagnostic Radiology
DX: C50.411 Malignant neoplasm of upper-outer quadrant of right female breast (principal)
CPT/HCPCS: 77062; 77066

== ENCOUNTER → 2021-03-01 | Outpatient (CLI) | payer BC ==
--- NOTE | 2021-03-03 09:40 | PE ---
EXAMINATION TYPE: PET CT fusion skull to thigh DATE OF EXAM: 03/01/2021 COMPARISON: CT abdomen and pelvis April 19 2018 HISTORY: Right-sided breast cancer diagnosed 2015 completed treatment 2016 TECHNIQUE: Following the intravenous administration of 10.30 mCi of F-18 FDG, whole body images are performed from the skull base to the midthigh. Images are reviewed on the computer in the coronal, a xial, and sagittal planes. Reconstructed rotating images are created on independent workstation and reviewed on the computer. A localization and attenuation correction CT is performed in conjunction with the PET scan. Blood glucose level equals 88. SCAN: Subsequent Scan FINDINGS: SKULL BASE AND NECK: No areas of abnormal hypermetabolic uptake. CHEST, MEDIASTINUM, AND HILAR REGION: No areas of abnormal hypermetabolic uptake. No suspicious hyper metabolic uptake in either breast or axillary region. ABDOMEN AND PELVIS: No areas of abnormal hypermetabolic uptake. Normal excretion is present. OSSEOUS STRUCTURES: No areas of abnormal hypermetabolic uptake. OTHER CT: Posttreatment change to medial superior aspect right breast with surgical clips surrounding 2.9 x 2.4 cm nonspecific thin-walled fluid collection presumed postsurgical seroma . Somewhat low bryan ng volumes. Liver is diffusely low dense consistent with fatty infiltration. Gallbladder not seen and presumed camp rgically absent. Mild to moderate generalized fat replaced atrophy of pancreas. Uterus surgically abs ent or markedly atrophic. Scattered tiny bile pelvic phleboliths. Small fat-containing umbilical carlos alberto ia. Moderate disc space narrowing with vacuum disc phenomenon L5-S1 level. Additional vacuum disc phenome non with mild to moderate disc space narrowing T11-T12 level. More prominent disc space narrowing in the lower cervical spine. IMPRESSION: Posttreatment changes to the right breast, no suspicious hypermetabolic uptake to suggest recurrent local or new metastatic malignancy.
== END | disposition home or self-care (01) ==
LOC: RADPETMAIN 16:16
PROVIDERS: ATTEND Internal Medicine Hematology & Oncology
DX: Z85.3 Personal history of malignant neoplasm of breast (principal)
CPT/HCPCS: 78815; A9552

== ENCOUNTER → 2021-06-10 | Outpatient (CLI) | payer BC ==
--- NOTE | 2021-06-10 14:05 | BD ---
EXAMINATION TYPE: Axial Bone Density DATE OF EXAM: 06/10/2021 COMPARISON: 08/23/2018 CLINICAL HISTORY: Height: 63.5 IN Weight: 213 LBS FRAX RISK QUESTIONS: Secondary Osteoporosis: 3. Menopause before 45: PARTIAL HYST AGE 40 RISK FACTORS HISTORY OF: Active: YES Diet low in dairy products/other sources of calcium: YES Postmenopausal woman: PARTIAL HYSTAGE 40 MEDICATIONS: Additional Medications: VIT D, OMEPRAZOLE, Additional History: BREAST CANCER WITH RADIATION EXAM MEASUREMENTS: Bone mineral densitometry was performed using the [employer] System. Bone mineral density as measured about the Lumbar spine is: ----- L1-L4(G/cm2): 1.369 T Score Values are as follows: ----- L2: 1.3 ----- L3: 2.3 ----- L4: 1.8 ----- L1-L4: 1.6 Bone mineral density has: Decreased -5.4% since study of: 09/01/2018 Bone mineral density about the R hip (g/cm2): 1.063 Bone mineral density about the L hip (g/cm2): 1.046 T Score values are as follows: -----R Neck: 0.2 -----L Neck: 0.1 -----R Total: 1.3 -----L Total: 1.3 Bone mineral density has: Decreased -4.9% since study of: 09/01/2018 IMPRESSION: No evidence for osteoporosis or osteopenia. NOTE: T-SCORE=SD OF THE YOUNG ADULT MEAN.
== END | disposition home or self-care (01) ==
LOC: RADBDWWP 09:56
PROVIDERS: ATTEND Internal Medicine Hematology & Oncology
DX: Z78.0 Asymptomatic menopausal state (principal)
CPT/HCPCS: 77080

== ENCOUNTER → 2021-07-11 | Outpatient (CLI) | payer BC ==
--- NOTE | 2021-07-11 11:27 | MM ---
Reason for exam: additional evaluation requested from prior study. Last mammogram was performed 1 year ago. History: Patient is postmenopausal, has history of breast cancer at age 49, and history of other cancer. Benign US breast aspiration single RT of the right breast, July 06, 2018. Benign US breast needle core RT of the right breast, July 06, 2018. Lumpectomy, 2016. Radiation therapy, 2016. Malignant US biopsy breast VAD RT of the right breast, September 13, 2015. Took hormonal contraceptives for 10 years beginning at age 18. Taking antineoplastic for 5 years. Physical Findings: Nurse did not find any significant physical abnormalities on exam. MG 3D Diag Mammo W/Cad LOUIE Bilateral CC and MLO view(s) were taken. Prior study comparison: July 09, 2020, bilateral MG 3d diag mammo w/cad LOUIE. June 28, 2019, bilateral MG 3d diag mammo w/cad LOUIE. January 13, 2019, right breast US breast RT. There are scattered fibroglandular densities. There is chronic nodularity in the left breast. Stable post operative changes and chronic medial posterior right seroma. No significant new findings when compared with previous films. These results were verbally communicated with the patient and result sheet given to the patient on 07/11/21. ASSESSMENT: Benign, BI-RAD 2 RECOMMENDATION: Follow-up diagnostic mammogram of both breasts in 1 year.
== END | disposition home or self-care (01) ==
LOC: RADMAMWWP 10:47
PROVIDERS: ATTEND Radiology Radiation Oncology
DX: R92.8 Other abnormal and inconclusive findings on diagnostic imaging of breast (principal); Z78.0 Asymptomatic menopausal state; Z85.3 Personal history of malignant neoplasm of breast
CPT/HCPCS: 77062; 77066

== ENCOUNTER 2022-06-17 20:06 | Emergency (ER) | payer BC ==
[2022-06-17 20:34] VITALS: PULSE 81; RESP 18; TEMP 98
[2022-06-17 20:36] VITALS: BP 166/94
--- NOTE | 2022-06-17 21:12 | ED ---
General Adult HPI - General Chief complaint: Abdominal Pain Stated complaint: abd pain Time Seen by Provider: 06/17/22 21:08 Source: patient, RN notes reviewed Mode of arrival: ambulatory Limitations: no limitations - History of Present Illness Initial comments: 56-year-old female presents to the emergency department for evaluation of right lower quadrant abdominal pain, onset 4 PM yesterday. Patient states the pain has persisted with no aggravating or alleviating factors. States she was at an urgent care today and was encouraged to come to the emergency department for evaluation of possible appendicitis. Patient states her symptoms are accompa nied by nausea. Did not take any medication for pain prior to arrival. Denies fever, chills, headache, dizziness, chest pain, shortness of breath, vomiting, diarrhea, dysuria, or hematuria. - Related Data Home Medications Medication Instructions Recorded Confirmed Cholecalciferol (Vitamin D3) 2,000 unit PO DAILY 10/27/17 07/06/18 [Vitamin D3] Tamoxifen Citrate 20 mg PO DAILY 10/27/17 07/06/18 Allergies Allergy/AdvReac Type Severity Reaction Status Date / Time PAIN MEDS AdvReac Intermediate Nausea & Uncoded 06/17/22 20:34 Vomiting Review of Systems ROS Statement: Those systems with pertinent positive or pertinent negative responses have been documented in the HPI. ROS Other: All systems not noted in ROS Statement are negative. Past Medical History Past Medical History: Cancer Additional Past Medical History / Comment(s): Rt. breast (sep 2015) History of Any Multi-Drug Resistant Organisms: None Reported Past Surgical History: Breast Surgery, Cholecystectomy, Hysterectomy Additional Past Surgical History / Comment(s): Rt. lumpectomy, partial hysterectomy (2005, retained bilateral ovaries), cholecystectomy (October 2017) Past Anesthesia/Blood Transfusion Reactions: Postoperative Nausea & Vomiting (PONV) Additional Past Anesthesia/Blood Transfusion Reaction / Comment(s): "hard time waking up" with general anesthesia Past Psychological History: No Psychological Hx Reported Smoking Status: Never smoker Past Alcohol Use History: None Reported Past Drug Use History: None Reported - Past Family History Father Family Medical History: Cancer Additional Family Medical History / Comment(s): lung cancer ( at age 60 from lung cancer) Mother Family Medical History: No Reported History General Exam Limitations: no limitations (Well-developed, well-nourished female in no acute distress. Initial temperature 98.0, pulse 81, respirations 18, blood pressure 166/94, pulse ox 98% on room air.) General appearance: alert, in no apparent distress ENT exam: Present: normal exam, normal oropharynx, mucous membranes moist Respiratory exam: Present: normal lung sounds bilaterally. Absent: respiratory distress, wheezes, rales, rhonchi, stridor, chest wall tenderness Cardiovascular Exam: Present: regular rate, normal rhythm, normal heart sounds. Absent: systolic murmur, diastolic murmur, rubs, gallop, clicks GI/Abdominal exam: Present: soft, tenderness (RLQ), guarding (periumbilical/RLQ), normal bowel sounds. Absent: distended, rebound, rigid Extremities exam: Present: normal inspection, full ROM, normal capillary refill Back exam: Absent: CVA tenderness (R), CVA tenderness (L) Neurological exam: Present: alert, oriented X3, CN II-XII intact, normal gait Psychiatric exam: Present: normal affect, normal mood Skin exam: Present: warm, dry, intact, normal color Course Vital Signs 06/17/22 20:32 Temperature 98 F Pulse Rate 81 Respiratory 18 Rate Blood Pressure 166/94 O2 Sat by Pulse 98 Oximetry Medical Decision Making - Medical Decision Making This is a 56-year-old female presenting to the emergency Department with complaints of right lower quadrant abdominal pain. Upon exam, patient is well- appearing and in no acute distress. She has mild right sided abdominal pain that does not worsen significantly with palpation. Laboratory studies were obtained and are unremarkable. Vital signs are stable. Patient is afebrile. CT of the abdomen and pelvis shows appendix at the upper normal size limits, but with no evidence of surrounding inflammation. Findings were discussed with patient and she is reassured. Declines anything for pain or nausea. We will follow-up with her PCP for R recheck as needed. Return parameters were discussed in detail. Patient verbalizes understanding and agrees with this plan. Attending:Isabella. - Lab Data Result diagrams: 06/17/22 21:26 06/17/22 21:26 Lab Results 06/17/22 06/17/22 Range/Units 21:26 21:26 WBC 6.0 (3.8-10.6) k/uL RBC 4.69 (3.80-5.40) m/uL Hgb 13.6 (11.4-16.0) gm/dL Hct 41.8 (34.0-46.0) % MCV 89.1 (80.0-100.0) fL MCH 29.0 (25.0-35.0) pg MCHC 32.5 (31.0-37.0) g/dL RDW 13.1 (11.5-15.5) % Plt Count 225 (150-450) k/uL MPV 7.7 Neutrophils % 44 % Lymphocytes % 40 % Monocytes % 10 % Eosinophils % 3 % Basophils % 1 % Neutrophils # 2.6 (1.3-7.7) k/uL Lymphocytes # 2.4 (1.0-4.8) k/uL Monocytes # 0.6 (0-1.0) k/uL Eosinophils # 0.2 (0-0.7) k/uL Basophils # 0.0 (0-0.2) k/uL Sodium 137 (137-145) mmol/L Potassium 4.2 (3.5-5.1) mmol/L Chloride 101 (98-107) mmol/L Carbon Dioxide 22 (22-30) mmol/L Anion Gap 14 mmol/L BUN 14 (7-17) mg/dL Creatinine 1.03 (0.52-1.04) mg/dL Est GFR (CKD-EPI)AfAm 69 (>60 ml/min/1.73 sqM) Est GFR (CKD-EPI)NonAf 60 (>60 ml/min/1.73 sqM) Glucose 98 (74-99) mg/dL Calcium 9.6 (8.4-10.2) mg/dL Total Bilirubin 1.0 (0.2-1.3) mg/dL AST 28 (14-36) U/L ALT 22 (4-34) U/L Alkaline Phosphatase 100 (38-126) U/L Total Protein 7.2 (6.3-8.2) g/dL Albumin 4.5 (3.5-5.0) g/dL - Radiology Data Radiology results: report reviewed CT of the abdomen and pelvis with contrast was obtained. Report was reviewed in its entirety. Impression per Dr. Quintero is 1. The base of the appendix is upper normal in size measuring 7-8 mm. The tip of the appendix is normal. No surrounding inflammation is seen to suggest acute appendicitis at this time. 2. Bowel loops are not dilated. No pneumoperitoneum, free fluid, or acute inflammatory changes are seen involving the bowel. 3. Previous cholecystectomy. No biliary duct dilation or choledocholithiasis. Disposition Clinical Impression: Abdominal pain Disposition: HOME SELF-CARE Condition: Stable Instructions (If sedation given, give patient instructions): Abdominal Pain (ED) Additional Instructions: If pain persists, please follow-up with your PCP for a recheck this week. If pain worsens or you develop a fever or repeated episodes of vomiting and are unable to tolerate oral intake, please return to the emergency department. Is patient prescribed a controlled substance at d/c from ED?: No Referrals: Lizzette Galindo DO [Primary Care Provider] - 1-2 days Time of Disposition: 00:08
[2022-06-17 21:57] LABS: Basophils % (A) 1 %; Eosinophils # (A) 0.2 k/uL (0-0.7); Eosinophils % (A) 3 %; HCT 41.8 % (34.0-46.0); HGB 13.6 gm/dL (11.4-16.0); Lymphocytes # (A) 2.4 k/uL (1.0-4.8); Lymphocytes % (A) 40 %; MCHC 32.5 g/dL (31.0-37.0); MCV 89.1 fL (80.0-100.0); Mean Platelet Volume 7.7; Monocytes # (A) 0.6 k/uL (0-1.0); Monocytes % (A) 10 %; Neutrophils # (A) 2.6 k/uL (1.3-7.7); Neutrophils % (A) 44 %; Platelet Count 225 k/uL (150-450); RBC 4.69 m/uL (3.80-5.40); RDW 13.1 % (11.5-15.5)
[2022-06-17 22:14] LABS: Albumin 4.5 g/dL (3.5-5.0); Calcium 9.6 mg/dL (8.4-10.2); Potassium 4.2 mmol/L (3.5-5.1); Total Protein 7.2 g/dL (6.3-8.2)
--- NOTE | 2022-06-17 23:05 | CT ---
EXAM: CT Abdomen and Pelvis With Intravenous Contrast CLINICAL HISTORY: ITS.REASON CT Reason: Right lower quadrant abdominal pain TECHNIQUE: Axial computed tomography images of the abdomen and pelvis with intravenous contrast. CTDI is 15.1 mGy and DLP is 1368 mGy-cm. This CT exam was performed using one or more of the following dose reduction techniques: automated exposure control, adjustment of the mA and/or kV according to patient size, and/or use of iterative reconstruction technique. COMPARISON: No relevant prior studies available. FINDINGS: Lung bases: Unremarkable. No mass. No consolidation. ABDOMEN: Liver: Unremarkable. No mass. Gallbladder and bile ducts: Previous cholecystectomy. No biliary duct dilation or choledocholithiasis. Pancreas: Unremarkable. No mass. No ductal dilation. Spleen: Unremarkable. No splenomegaly. Adrenals: Unremarkable. No mass. Kidneys and ureters: Delayed images show normal renal contrast excretion bilaterally. No hydronephrosis. Stomach and bowel: Unremarkable. No obstruction. No mucosal thickening. PELVIS: Appendix: The base of the appendix is upper normal in size measuring 7- 8 mm. The tip of the appendix is normal. No surrounding inflammation is seen to suggest acute appendicitis at this time. Bladder: The urinary bladder is completely decompressed and unremarkable. Reproductive: Unremarkable as visualized. ABDOMEN and PELVIS: Intraperitoneal space: Bowel loops are nondilated. No pneumoperitoneum, free fluid, or acute inflammatory changes are seen involving the bowel. The uterus appears to be absent. No free fluid is seen in the pelvis. Bones/joints: Mild degenerative changes in the spine. No fracture or subluxation is seen. Soft tissues: Unremarkable. Vasculature: Unremarkable. No abdominal aortic aneurysm. Lymph nodes: Unremarkable. No enlarged lymph nodes. IMPRESSION: 1. The base of the appendix is upper normal in size measuring 7-8 mm. The tip of the appendix is normal. No surrounding inflammation is seen to suggest acute appendicitis at this time. 2. Bowel loops are nondilated. No pneumoperitoneum, free fluid, or acute inflammatory changes are seen involving the bowel. 3. Previous cholecystectomy. No biliary duct dilation or choledocholithiasis.
== END 2022-06-18 01:53 | disposition home or self-care (01) ==
LOC: EC 20:06
DX: R10.31 Right lower quadrant pain (principal); Z88.8 Allergy status to other drugs, medicaments and biological substances
CPT/HCPCS: 36415; 80053; 85025; 74177; 99284; Q9967

== ENCOUNTER → 2022-07-14 | Outpatient (CLI) | payer BC ==
--- NOTE | 2022-07-14 11:35 | MM ---
Reason for Exam: Hx of breast cancer, conservation therapy. Last mammogram was performed 1 year(s) and 1 month(s) ago. Patient History: Menarche at age 9. First Full-Term at age 27. Hysterectomy at age 40. Postmenopausal. Breast cancer, right, age 49. Other cancer. Hormonal Contraceptives for 10 years from age 18 until age 28. 2016, Lumpectomy. 07/06/2018, Benign Cyst Aspiration on the right side. 07/06/2018, Benign Core Biopsy on the right side. 09/13/2015, Malignant Core Biopsy on the right side. 2016, Radiation Therapy. Tissue Density: There are scattered fibroglandular densities. Findings: Analyzed By CAD. No new suspicious masses, calcifications or distortions. Similar postlumpectomy changes in the right breast. Overall Assessment: Benign, BI-RAD 2 Management: Screening Mammogram of both breasts in 1 year. A clinical breast exam by your physician is recommended on an annual basis and results should be correlated with mammographic findings. This exam should not preclude additional follow-up of suspicious palpable abnormalities. Results were given to the patient verbally at the time of exam. Electronically signed and approved by: Alfonso Bauman DO
== END | disposition home or self-care (01) ==
LOC: RADMAMWWP 10:59
PROVIDERS: ATTEND Radiology Diagnostic Radiology
DX: C50.411 Malignant neoplasm of upper-outer quadrant of right female breast (principal); Z78.0 Asymptomatic menopausal state; Z85.3 Personal history of malignant neoplasm of breast
CPT/HCPCS: 77062; 77066

== ENCOUNTER → 2023-03-13 | Outpatient (CLI) | payer BC ==
--- NOTE | 2023-03-16 06:18 | PE ---
EXAMINATION TYPE: PET CT fusion skull to thigh DATE OF EXAM: 03/13/2023 COMPARISON: Prior PET/CT March 01, 2021 and older studies HISTORY: Right-sided breast cancer diagnosed 2014 and last treated 2015 TECHNIQUE: Following the intravenous administration of 8.26 mCi of F-18 FDG, whole body images are p erformed from the skull base to the midthigh. Images are reviewed on the computer in the coronal, ax ial, and sagittal planes. Reconstructed rotating images are created on independent workstation and r eviewed on the computer. A localization and attenuation correction CT is performed in conjunction w ith the PET scan. Blood glucose level equals 121 SCAN: Subsequent Scan FINDINGS: SKULL BASE AND NECK: No new areas of suspicious abnormal hypermetabolic uptake. Mild symmetric uptak e bilateral submandibular glands could reflect inflammatory etiology. CHEST, MEDIASTINUM, AND HILAR REGION: No new areas of abnormal hypermetabolic uptake. No suspicious h ypermetabolic uptake in either breast or axillary region. Surgical change to the medial right breast with thin-walled 3.2 x 2.0 cm fluid collection presumed seroma and surrounding clips is redemonstrate d axial image 82. ABDOMEN AND PELVIS: Mild nonspecific bowel uptake. No areas of suspicious abnormal hypermetabolic upt tenisha. Normal excretion is redemonstrated. OSSEOUS STRUCTURES: No new areas of abnormal hypermetabolic uptake. OTHER CT: Somewhat low lung volumes redemonstrated. Liver is diffusely low dense consistent with fatty infiltration. Gallbladder not seen and presumed camp rgically absent. Moderate generalized fat replaced atrophy of pancreas redemonstrated. Uterus surgica lly absent or markedly atrophic. Scattered tiny bile pelvic phleboliths. Small fat-containing umbilic al hernia axial image 169 redemonstrated. Occasional distal colonic diverticula. Moderate disc space narrowing with vacuum disc phenomenon L5-S1 level. More prominent disc space narr owing in the lower cervical spine redemonstrated. IMPRESSION: Posttreatment changes to the right breast redemonstrated, no suspicious new hypermetaboli c uptake to suggest recurrent local or new metastatic malignancy. No significant change from prior PE T/CT.
== END | disposition home or self-care (01) ==
LOC: RADPETMAIN 09:03
PROVIDERS: ATTEND Internal Medicine Hematology & Oncology
DX: C50.411 Malignant neoplasm of upper-outer quadrant of right female breast (principal); Z17.0 Estrogen receptor positive status [ER+]; Z71.3 Dietary counseling and surveillance
CPT/HCPCS: 78815; A9552

== ENCOUNTER → 2023-07-22 | Outpatient (CLI) | payer BC ==
--- NOTE | 2023-07-22 09:56 | MM ---
Reason for Exam: Hx of breast cancer, conservation therapy. Last screening mammogram was performed 12 month(s) ago. Patient History: Menarche at age 9. First Full-Term at age 27. Hysterectomy at age 40. Postmenopausal. Breast cancer, right, age 49. Other cancer. Hormonal Contraceptives for 10 years from age 18 until age 28. 2016, Lumpectomy. 07/06/2018, Benign Cyst Aspiration on the right side. 07/06/2018, Benign Core Biopsy on the right side. 09/13/2015, Malignant Core Biopsy on the right side. 2016, Radiation Therapy. Prior Study Comparison: 06/28/2019 Bilateral Diagnostic Mammogram, [facility]. 07/09/2020 Bilateral Diagnostic Mammogram, [facility]. 07/11/2021 Bilateral Diagnostic Mammogram, [facility]. 07/14/2022 Bilateral MG 3D diag mammo w/cad LOUIE, [facility]. Tissue Density: There are scattered fibroglandular densities. Findings: Analyzed By CAD. This operative lumpectomy changes right breast with seroma noted. No evidence for recurrent mass. No evidence for distortion or suspicious microcalcifications within either breast. Overall Assessment: Benign, BI-RAD 2 Management: Screening Mammogram of both breasts in 1 year. . Results were given to the patient verbally at the time of exam. Patient should continue monthly self-breast exams. A clinical breast exam by your physician is recommended on an annual basis. This exam should not preclude additional follow-up of suspicious palpable abnormalities. Note on Hilaria scores and lifetime risk: 1. A Hilaria score greater than 3% is considered moderate risk. If this is the case, consider specialist referral to assess eligibility for a risk reducing agent. 2. If overall lifetime risk for the development of breast cancer is 20% or higher, the patient may qualify for future screening with alternating mammogram and breast MRI. Electronically signed and approved by: Gurdeep Morales M.D. Radiologis
== END | disposition home or self-care (01) ==
LOC: RADMAMWWP 09:26
PROVIDERS: ATTEND Radiology Radiation Oncology
DX: N63.10 Unspecified lump in the right breast, unspecified quadrant (principal); N63.20 Unspecified lump in the left breast, unspecified quadrant; R92.323 Mammographic fibroglandular density, bilateral breasts; Z78.0 Asymptomatic menopausal state; Z85.3 Personal history of malignant neoplasm of breast
CPT/HCPCS: 77062; 77066

== ENCOUNTER → 2024-07-25 | Outpatient (CLI) | payer BC ==
--- NOTE | 2024-07-25 10:36 | MM ---
Reason for Exam: Screening (asymptomatic). Last screening mammogram was performed 12 month(s) ago. Patient History: Menarche at age 9. First Full-Term at age 27. Hysterectomy at age 40. Postmenopausal. Patient has history of breast feeding. Breast cancer, right, age 49. Previous chest radiation therapy at age 50. Hormonal Contraceptives for 10 years from age 18 until age 28. 2016, Lumpectomy. 07/06/2018, Benign Cyst Aspiration on the right side. 07/06/2018, Benign Core Biopsy on the right side. 09/13/2015, Malignant Core Biopsy on the right side. 2016, Radiation Therapy. Prior Study Comparison: 07/11/2021 Bilateral Diagnostic Mammogram, [facility]. 07/14/2022 Bilateral MG 3D diag mammo w/cad LOUIE, [facility]. 07/22/2023 Bilateral MG 3D diag mammo w/cad LOUIE, [facility]. Tissue Density: The breasts are almost entirely fatty. Findings: Analyzed By CAD. Bilateral breast implants appear intact with postprocedural change. Right breast: There is no suspicious group of microcalcifications or new suspicious mass. Left breast: There is no suspicious group of microcalcifications or new suspicious mass. Overall Assessment: Benign, BI-RAD 2 Management: Screening Mammogram of both breasts in [address] [facility] will attempt to contact patient to return for supplemental views and ultrasound if indicated. Patient should continue monthly self-breast exams. A clinical breast exam by your physician is recommended on an annual basis. This exam should not preclude additional follow-up of suspicious palpable abnormalities. Note on Hilaria scores and lifetime risk: 1. A Hilaria score greater than 3% is considered moderate risk. If this is the case, consider specialist referral to assess eligibility for a risk reducing agent. 2. If overall lifetime risk for the development of breast cancer is 20% or higher, the patient may qualify for future screening with alternating mammogram and breast MRI. [facility], , 07/25/2024 10:19 AM. Electronically signed and approved by: Alfonso Bauman DO
== END | disposition home or self-care (01) ==
LOC: RADMAMWWP 09:35
PROVIDERS: ATTEND Radiology Radiation Oncology
CPT/HCPCS: 77063; 77067

== ENCOUNTER 2024-09-15 16:34 | Observation (INO) | payer BC ==
--- NOTE | 2024-09-15 17:11 | ED ---
Abdominal Pain HPI - General Source: patient, RN notes reviewed Mode of arrival: ambulatory Limitations: no limitations - History of Present Illness MD Complaint: abdominal pain Onset/Timin -: week(s) <Gabe Pascual - Last Filed: 09/15/24 17:10> <Kaleb Chacon - Last Filed: 09/15/24 19:50> - General Chief Complaint: Abdominal Pain Stated Complaint: APPENDICITIS Time Seen by Provider: 09/15/24 16:51 - History of Present Illness Initial Comments: Quick note: This is a 58-year-old female presenting with appendicitis discovered on CT performed today (09/15/2024) by Dr. Bradford. Patient endorses constipation for the past month with pain worsening following the use of MiraLAX for the past 3 to 4 weeks. Endorses associated nausea. Denies fever, chills, chest pain, dyspnea. (Gabe Pascual) - Related Data Home Medications Medication Instructions Recorded Confirmed Cholecalciferol (Vitamin D3) 2,000 unit PO DAILY 10/27/17 07/06/18 [Vitamin D3] Tamoxifen Citrate 20 mg PO DAILY 10/27/17 07/06/18 Allergies Allergy/AdvReac Type Severity Reaction Status Date / Time PAIN MEDS AdvReac Intermediate Nausea & Uncoded 09/15/24 16:42 Vomiting Review of Systems ROS Other: All systems not noted in ROS Statement are negative. <Gabe Pascual - Last Filed: 09/15/24 17:10> ROS Other: All systems not noted in ROS Statement are negative. <Kaleb Chacon - Last Filed: 09/15/24 19:50> ROS Statement: Those systems with pertinent positive or pertinent negative responses have been documented in the HPI. Past Medical History Past Medical History: Cancer Additional Past Medical History / Comment(s): Rt. breast (sep 2015) History of Any Multi-Drug Resistant Organisms: None Reported Past Surgical History: Breast Surgery, Cholecystectomy, Hysterectomy Additional Past Surgical History / Comment(s): Rt. lumpectomy, partial hysterectomy (2005, retained bilateral ovaries), cholecystectomy (October 2017) Past Anesthesia/Blood Transfusion Reactions: Postoperative Nausea & Vomiting (PONV) Additional Past Anesthesia/Blood Transfusion Reaction / Comment(s): "hard time waking up" with general anesthesia Past Psychological History: No Psychological Hx Reported Smoking Status: Never smoker Past Alcohol Use History: None Reported Past Drug Use History: None Reported - Past Family History Father Family Medical History: Cancer Additional Family Medical History / Comment(s): lung cancer ( at age 60 from lung cancer) Mother Family Medical History: No Reported History <Gabe Pascual - Last Filed: 09/15/24 17:10> General Exam Limitations: no limitations <Gabe Pascual - Last Filed: 09/15/24 17:10> - General Exam Comments Initial Comments: Visual Physical Exam Vital signs reviewed General: Well-appearing, nontoxic, no acute distress. Head: Normocephalic, atraumatic Eyes: PERRLA, EOMI ENT: Airway patent Chest: Nonlabored breathing Skin: No visual rash, normal skin tone Neuro: Alert and oriented 3 Musculoskeletal: No gross abnormalities (Gabe Pascual) Course Vital Signs 09/15/24 16:39 Temperature 98.9 F Pulse Rate 86 Respiratory 16 Rate Blood Pressure 160/99 O2 Sat by Pulse 98 Oximetry Medical Decision Making <Gabe Pascual - Last Filed: 09/15/24 17:10> - Lab Data Result diagrams: 09/15/24 17:30 09/15/24 17:30 <Kaleb Chacon - Last Filed: 09/15/24 19:50> - Medical Decision Making I completed the quick note portion of this chart signed SHAKIRA Powers (Gabe Pascual) Was pt. sent in by a medical professional or institution ([facility], SHOW HOST/HOSTESS, urgent care, hospital, or penitentiary...) When possible be specific @ -No Did you speak to anyone other than the patient for history (EMS, parent, family, police, friend...)? What history was obtained from this source @ -No Did you review nursing and triage notes (agree or disagree)? Why? @ -I reviewed and agree with nursing and triage notes Were old charts reviewed (outside hosp., previous admission, EMS record, old EKG, old radiological studies, urgent care reports/EKG's, penitentiary records)? Report findings @ -No old charts were reviewed Differential Diagnosis? @ -Differential Abdominal Pain Women: Appendicitis, Cholecystitis, diverticulosis, ischemic bowel, pancreatitis, he patitis, UTI, gastroenteritis, AAA, incarcerated hernia, bowel obstruction, constipation, inflammatory bowel, hepatitis, peptic ulcer disease, splenic infarction, perforated viscus, vulvitis, ovarian torsion, PID, kidney stone, placenta abruption, this is not meant to be an all-inclusive list EKG interpreted by me (3pts min.). @ -As above X-rays interpreted by me (1pt min.). @ -None done CT interpreted by me (1pt min.). @ -CT scan was reviewed by myself and a second radiologist and they indicated it was acute appendicitis U/S interpreted by me (1pt. min.). @ -None done What testing was considered but not performed or refused? (CT, X-rays, U/S, labs)? Why? @ -None What meds were considered but not given or refused? Why? @ -None Did you discuss the management of the patient with other professionals (professionals i.e. , PA, SHOW HOST/HOSTESS, lab, RT, psych nurse, social welfare clerk, anodizer, teacher, duty officer, registered nurse hh case manager)? Give summary @ -I spoke with Dr. Greer and she agreed to admit the patient but the patient wrote admitting orders Was smoking cessation discussed for >3mins.? @ -No Was critical care preformed (if so, how long)? @ -No Were there social determinants of health that impacted care today? How? (Homelessness, low income, unemployed, alcoholism, drug addiction, transportati on, low edu. Level, literacy, decrease access to med. care, penitentiary, rehab)? @ -No Was there de-escalation of care discussed even if they declined (Discuss DNR or withdrawal of care, Hospice)? DNR status @ -No What co-morbidities impacted this encounter? (DM, HTN, Smoking, COPD, CAD, Cancer, CVA, ARF, Chemo, Hep., AIDS, mental health diagnosis, sleep apnea, morbid obesity)? @ -None Was patient admitted / discharged? Hospital course, mention meds given and route, prescriptions, significant lab abnormalities, going to OR and other pertinent info. @ -I started antibiotics on the patient for acute appendicitis and the patient will be admitted to Dr. Greer Undiagnosed new problem with uncertain prognosis? @ -No Drug Therapy requiring intensive monitoring for toxicity (Heparin, Nitro, Insulin, Cardizem)? @ -No Were any procedures done? @ -No Diagnosis/symptom? @ -Acute appendicitis Acute, or Chronic, or Acute on Chronic? @ -Acute Uncomplicated (without systemic symptoms) or Complicated (systemic symptoms)? @ -Complicated Side effects of treatment? @ -No Exacerbation, Progression, or Severe Exacerbation? @ -No Poses a threat to life or bodily function? How? (Chest pain, USA, OR, pneumonia, PE, COPD, DKA, ARF, appy, cholecystitis, CVA, Diverticulitis, Homicidal, Suicidal, threat to staff... and all critical care pts) @ -This can lead to sepsis and endorgan dysfunction (Kaleb Chacon) - Lab Data Lab Results 09/15/24 09/15/24 09/15/24 Range/Units 17:15 17:30 17:30 WBC 5.9 (3.8-10.6) k/uL RBC 4.46 (3.80-5.40) m/uL Hgb 13.3 (11.4-16.0) gm/dL Hct 39.6 (34.0-46.0) % MCV 88.9 (80.0-100.0) fL MCH 29.8 (25.0-35.0) pg MCHC 33.5 (31.0-37.0) g/dL RDW 12.7 (11.5-15.5) % Plt Count 215 (150-450) k/uL MPV 7.4 Neutrophils % 53 % Lymphocytes % 34 % Monocytes % 7 % Eosinophils % 3 % Basophils % 1 % Neutrophils # 3.1 (1.3-7.7) k/uL Lymphocytes # 2.0 (1.0-4.8) k/uL Monocytes # 0.4 (0-1.0) k/uL Eosinophils # 0.2 (0-0.7) k/uL Basophils # 0.0 (0-0.2) k/uL Sodium 139 (137-145) mmol/L Potassium 3.5 (3.5-5.1) mmol/L Chloride 103 (98-107) mmol/L Carbon Dioxide 30 (22-30) mmol/L Anion Gap 6 mmol/L BUN 12 (7-17) mg/dL Creatinine 0.94 (0.52-1.04) mg/dL Est GFR (CKD-EPI)AfAm 76 (>60 ml/min/1.73 sqM) Est GFR (CKD-EPI)NonAf 66 (>60 ml/min/1.73 sqM) Glucose 99 (74-99) mg/dL Calcium 9.4 (8.4-10.2) mg/dL Total Bilirubin 0.6 (0.2-1.3) mg/dL AST 27 (14-36) U/L ALT 23 (4-34) U/L Alkaline Phosphatase 101 (38-126) U/L Total Protein 7.1 (6.3-8.2) g/dL Albumin 4.4 (3.5-5.0) g/dL Amylase 34 (30-110) U/L Lipase 42 (23-300) U/L Blood Type O Positive Blood Type Recheck O Pos Bld Type Recheck Status No Antibody Screen NEGATIVE Spec Expiration Date 09/18/20242314 Disposition <Gabe Pascual - Last Filed: 09/15/24 17:10> Time of Disposition: 19:49 <Kaleb Chacon - Last Filed: 09/15/24 19:50> Clinical Impression: Acute appendicitis Disposition: ADMITTED IP TO THIS HOSP Referrals: Lizzette Bradford DO [Primary Care Provider] - 1-2 days
[2024-09-15 17:34] LABS: Basophils % (A) 1 %; Eosinophils # (A) 0.2 k/uL (0-0.7); Eosinophils % (A) 3 %; HCT 39.6 % (34.0-46.0); HGB 13.3 gm/dL (11.4-16.0); Lymphocytes % (A) 34 %; MCH 29.8 pg (25.0-35.0); MCHC 33.5 g/dL (31.0-37.0); MCV 88.9 fL (80.0-100.0); Mean Platelet Volume 7.4; Monocytes # (A) 0.4 k/uL (0-1.0); Monocytes % (A) 7 %; Neutrophils # (A) 3.1 k/uL (1.3-7.7); Neutrophils % (A) 53 %; Platelet Count 215 k/uL (150-450); RBC 4.46 m/uL (3.80-5.40); RDW 12.7 % (11.5-15.5); WBC 5.9 k/uL (3.8-10.6)
[2024-09-15 17:51] LABS: ALT 23 U/L (4-34); AST 27 U/L (14-36); African American GFR (CKD) 76 (>60 ml/min/1.73 sqM); Albumin 4.4 g/dL (3.5-5.0); Alkaline Phosphatase 101 U/L (38-126); Amylase 34 U/L (30-110); Anion Gap 6 mmol/L; Blood Urea Nitrogen 12 mg/dL (7-17); Calcium 9.4 mg/dL (8.4-10.2); Carbon Dioxide 30 mmol/L (22-30); Chloride 103 mmol/L (98-107); Glucose 99 mg/dL (74-99); Lipase 42 U/L (23-300); Non-African American GFR(CKD) 66 (>60 ml/min/1.73 sqM); Potassium 3.5 mmol/L (3.5-5.1); Sodium 139 mmol/L (137-145); Total Bilirubin 0.6 mg/dL (0.2-1.3); Total Protein 7.1 g/dL (6.3-8.2)
[2024-09-15] MEDS: SODIUM CHLORIDE 0.9% 1,000 ML IV ONE (20:56)
[2024-09-15] MEDS: PIPERACILLIN-TAZOBACTAM 3.375 GM in SODIUM CHLORIDE 0.9% 100 ML IVPB STA (20:56)
[2024-09-16] MEDS: PIPERACILLIN-TAZOBACTAM 3.375 GM in SODIUM CHLORIDE 0.9% 100 ML IVPB SCH (01:22)
[2024-09-16] MEDS ORDERED: HYDROmorphone 1 MG/ML 1 ML SYRINGE IVP PRN (06:33)
[2024-09-16] MEDS ORDERED: NALOXONE 0.4 MG/ML 1 ML VIAL IV PRN (06:33)
[2024-09-16] MEDS: HEPARIN SODIUM,PORCINE 5,000 UNIT/ML 1 ML VIAL SQ SCH (08:56)
[2024-09-16] MEDS: D5-0.45% NACL WITH KCL 20MEQ/L 1,000 ML IV SCH (09:51)
--- NOTE | 2024-09-16 10:31 | P.GSHP ---
History of Present Illness H&P Date: 09/16/24 CHIEF COMPLAINT: Abdominal pain HISTORY OF PRESENT ILLNESS: This is a 58-year-old female who presented the hospital with complaints of abdominal pain. Patient reports 3 weeks of lower abdominal pain which she contributed to constipation. She had been taking multiple medications to help with bowel movements. She did have bowel movements. And continued to have pain. She went to see her PCP who ordered a CT scan outpatient which had shown evidence of an acute appendicitis and then patient was directed to come to the ER. Patient denies any fever chills or sweats. She has been having some nausea denies any vomiting. Past surgical history includes cholecystectomy and a partial hysterectomy. Denies any cardiac history. Denies being on any blood thinners. PAST MEDICAL HISTORY: See list. PAST SURGICAL HISTORY: See list. MEDICATIONS: See list. ALLERGIES: See list. SOCIAL HISTORY: No illicit drug use. REVIEW OF SYSTEMS: CONSTITUTIONAL: Denies fever or chills. HEENT: Denies blurred vision, vision changes, or eye pain. Denies hemoptysis ENDOCRINE: Denies heat or cold intolerance. CARDIOVASCULAR: Denies chest pain or pressure. RESPIRATORY: No shortness of breath. GASTROINTESTINAL: Please refer to HPI otherwise unremarkable NEURO: Denies history of seizures. PSYCH: No depression or suicidal ideation HEMATOLOGIC: Denies bleeding disorders. LYMPHATIC: The patient denies any lumps and bumps around the neck. GENITOURINARY: Denies any blood in urine or increased urinary frequency. MUSCULOSKELETAL: Denies myalgias. Denies joint swelling. Denies decreased range of motion beyond patients baseline. SKIN: Denies pruitis. Denies rash. PHYSICAL EXAM: VITAL SIGNS: Reviewed GENERAL: Well-developed in no acute distress. HEENT: No sclera icterus. Extraocular movements grossly intact. Moist buccal mucosa. Head is atraumatic, normocephalic. Hears conversational speech. No nasal drainage. NECK: Supple without lymphadenopathy. CHEST: Non-labored respirations and equal bilateral excursions. CARDIOVASCULAR: Palpable 2+ radial pulses. ABDOMEN: Soft. Nondistended. Tenderness with palpation near the umbilicus on the right side and in the right lower abdomen. No rebound. No guarding. MUSCULOSKELETAL: No clubbing or cyanosis. NEUROLOGIC: No focal or lateralizing signs. Cranial nerves II through XII grossly intact. PSYCH: Appropriate affect. Alert and oriented to person, place and time. SKIN: Well perfused. Good skin turgor. LABORATORY DATA: WBC 5.9 Hgb 13.3 platelets 215 Sodium 139 potassium 3.5 creatinine 0.94 LFTs normal IMAGING: CT scan abdomen pelvis reports mildly dilated appendix with some new surrounding inflammatory changes concerning for acute appendicitis. No stranding or organized fluid collection or evidence for perforation. Pancolonic diverticulosis without evidence for acute diverticulitis. ASSESSMENT: 1. Acute appendicitis 2. Constipation PLAN: -Patient scheduled for Robotic appendectomy today with Dr. Greer -Keep patient n.p.o. -Continue IV antibiotics -Continue IV fluids -Continue pain management -Continue antiemetics Physician Trekking Guide note has been reviewed by physician. Signing provider agrees with the documented findings, assessment, and plan of care. Past Medical History Past Medical History: Cancer Additional Past Medical History / Comment(s): Rt. breast (sep 2015) History of Any Multi-Drug Resistant Organisms: None Reported Past Surgical History: Breast Surgery, Cholecystectomy, Hysterectomy Additional Past Surgical History / Comment(s): Rt. lumpectomy, partial hysterectomy (2005, retained bilateral ovaries), cholecystectomy (October 2017) Past Anesthesia/Blood Transfusion Reactions: Postoperative Nausea & Vomiting (PONV) Additional Past Anesthesia/Blood Transfusion Reaction / Comment(s): "hard time waking up" with general anesthesia Past Psychological History: No Psychological Hx Reported Smoking Status: Never smoker Past Alcohol Use History: None Reported Past Drug Use History: None Reported - Past Family History Father Family Medical History: Cancer Additional Family Medical History / Comment(s): lung cancer ( at age 60 from lung cancer) Mother Family Medical History: No Reported History Medications and Allergies Home Medications Medication Instructions Recorded Confirmed Type Benzonatate [Tessalon Perle] 200 mg PO TID PRN 09/15/24 09/15/24 History Docusate [Colace] 200 mg PO DAILY 09/15/24 09/15/24 History L.acidoph,Paracasei, B.lactis 1 cap PO DAILY 09/15/24 09/15/24 History [Probiotic] Omeprazole 20 mg PO DAILY 09/15/24 09/15/24 History Allergies Allergy/AdvReac Type Severity Reaction Status Date / Time PAIN MEDS AdvReac Intermediate Nausea & Uncoded 09/15/24 16:42 Vomiting Surgical - Exam Vital Signs Temp Pulse Resp BP Pulse Ox 98.9 F 86 16 160/99 98 09/15/24 16:39 09/15/24 16:39 09/15/24 16:39 09/15/24 16:39 09/15/24 16:39 Results - Labs 09/15/24 17:30 09/15/24 17:30 Diabetes panel 09/15/24 Range/Units 17:30 Sodium 139 (137-145) mmol/L Potassium 3.5 (3.5-5.1) mmol/L Chloride 103 (98-107) mmol/L Carbon Dioxide 30 (22-30) mmol/L BUN 12 (7-17) mg/dL Creatinine 0.94 (0.52-1.04) mg/dL Glucose 99 (74-99) mg/dL Calcium 9.4 (8.4-10.2) mg/dL AST 27 (14-36) U/L ALT 23 (4-34) U/L Alkaline Phosphatase 101 (38-126) U/L Total Protein 7.1 (6.3-8.2) g/dL Albumin 4.4 (3.5-5.0) g/dL Calcium panel 09/15/24 Range/Units 17:30 Calcium 9.4 (8.4-10.2) mg/dL Albumin 4.4 (3.5-5.0) g/dL Pituitary panel 09/15/24 Range/Units 17:30 Sodium 139 (137-145) mmol/L Potassium 3.5 (3.5-5.1) mmol/L Chloride 103 (98-107) mmol/L Carbon Dioxide 30 (22-30) mmol/L BUN 12 (7-17) mg/dL Creatinine 0.94 (0.52-1.04) mg/dL Glucose 99 (74-99) mg/dL Calcium 9.4 (8.4-10.2) mg/dL Adrenal panel 09/15/24 Range/Units 17:30 Sodium 139 (137-145) mmol/L Potassium 3.5 (3.5-5.1) mmol/L Chloride 103 (98-107) mmol/L Carbon Dioxide 30 (22-30) mmol/L BUN 12 (7-17) mg/dL Creatinine 0.94 (0.52-1.04) mg/dL Glucose 99 (74-99) mg/dL Calcium 9.4 (8.4-10.2) mg/dL Total Bilirubin 0.6 (0.2-1.3) mg/dL AST 27 (14-36) U/L ALT 23 (4-34) U/L Alkaline Phosphatase 101 (38-126) U/L Total Protein 7.1 (6.3-8.2) g/dL Albumin 4.4 (3.5-5.0) g/dL
[2024-09-16] MEDS: KETOROLAC 15 MG/ML 1 ML VIAL IVP SCH (11:34)
[2024-09-16] MEDS: IV FLUID CONTINUATION 1,000 ML IV ONE (15:35)
[2024-09-16] MEDS: LACTATED RINGERS 1,000 ML BAG IV STA (15:45)
[2024-09-16] MEDS: ONDANSETRON 4 MG/2 ML VIAL IVP PRN (15:46)
[2024-09-16] MEDS: DEXAMETHASONE SOD PHOSPHATE 4 MG/ML 1 ML VIAL IVP STA (15:48)
[2024-09-16] MEDS: FAMOTIDINE 20 MG/2 ML VIAL IV STA (15:52)
[2024-09-16] MEDS: SCOPOLAMINE 1 MG/72 HR PATCH TRANSDERM STA ×2 (15:54→19:35)
[2024-09-16] MEDS: LIDOCAINE 1%-EPI 1:100,000 20 ML VIAL SQ ONE ×2 (16:18→16:50)
[2024-09-16] MEDS ORDERED: LABETALOL 5 MG/ML VIAL MDV ONE (16:34)
[2024-09-16] MEDS ORDERED: SUCCINYLCHOLINE CHLORIDE 200 MG/10 ML VIAL IV ONE (16:34)
[2024-09-16] MEDS ORDERED: KETAMINE HCL IN 0.9 % NACL 50 MG/5 ML SYRINGE ONE (16:34)
[2024-09-16] MEDS ORDERED: NEOSTIGMINE 1 MG/ML 10 ML VIAL ONE (16:34)
[2024-09-16] MEDS ORDERED: PROPOFOL 10 MG/ML 20 ML VIAL IV ONE (16:34)
[2024-09-16] MEDS ORDERED: ceFAZolin 1 GM/50 ML BAG (PMX) ONE (16:34)
[2024-09-16] MEDS ORDERED: GLYCOPYRROLATE 0.2 MG/ML 2 ML VIAL ONE (16:34)
[2024-09-16] MEDS ORDERED: ACETAMINOPHEN IV (For NPO) 1,000 MG/100 ML VIAL ONE (16:34)
[2024-09-16] MEDS ORDERED: KETOROLAC 15 MG/ML 1 ML VIAL ONE (16:34)
[2024-09-16] MEDS ORDERED: LIDOCAINE 1% INJ 10MG/ML (20 ML MDV) ONE (16:34)
[2024-09-16] MEDS ORDERED: ROCURONIUM 10 MG/ML (5 ML VIAL) IV ONE (16:34)
[2024-09-16] MEDS: SODIUM CHLORIDE 0.9% 100 ML with ceFAZolin 2,000 MG IV ONE (16:47)
--- NOTE | 2024-09-16 17:50 | P.OP ---
Date of Procedure: 09/16/24 Description of Procedure: SURGEON: LESVIA GREER MD Preoperative Diagnosis: 1. Acute appendicitis 2. Chronic constipation 3. Obesity due to excess calories, BMI 34.3 4. Gastroesophageal reflux disease 5. History of right breast cancer 6. Postop nausea vomiting Postoperative Diagnosis: 1. Acute appendicitis 2. Chronic constipation 3. Obesity due to excess calories, BMI 34.3 4. Gastroesophageal reflux disease 5. History of right breast cancer 6. Postop nausea vomiting Procedure(s) Performed: 1. Robotic-assisted daVinci Xi laparoscopic appendectomy Anesthesia: GETA, local Estimated Blood Loss (ml): 5 Pathology: other (appendix) Condition: stable Disposition: floor Operative Findings: 1. Acute appendicitis without rupture with periappendicitis 2. Terminal ileum unremarkable 3. Cecum unremarkable INDICATIONS: The patient is a 58-year-old female who presents with acute appendicitis. Benefits and risks, including infection, open surgery, and bleeding for additional surgery was discussed at length. Informed consent was obtained. All questions of the patient and family were answered. DESCRIPTION: The patient was transferred to the operating room and placed in supine position. The patient had previously voided. The abdomen was then prepped and draped in standard sterile fashion as Ioban was placed along the abdomen to minimize any contamination of skin floor. After a timeout protocol was performed, attention was then brought to the left upper quadrant whereby a 0 degree 5 mm laparoscopic trocar entry was performed. The abdominal cavity was entered and insufflated to 12 mmHg pressure, which was tolerated well. Diagnostic laparoscopy demonstrated no injury to bowel, viscera or mesentery. Next a robotic 8-mm trocar was placed along the left lower quadrant, 10-cm lateral to the midline. A 12 mm port was placed along the left upper quadrant and another 8-mm port left lateral abdominal wall. Ports were placed 8 cm apart from each other including 15-20 cm away from the target anatomy of the right pelvis. The patient was then placed in Trendelenburg position, at least 7 down and right side up at least 7. The robotic da Joan XI system was primed and docked from the left side of the patient. Using atraumatic graspers and vessel sealer, the robotic system was docked and primed as described. Instruments were interchanged by the fish hatchery assistant including graspers, robotic stapler and vessel sealer. Next, attention was brought to identify the cecum. A systematic view within the abdominal cavity was started with the small bowel which was unremarkable. The base of the cecum was unremarkable. The appendix was dilated on the tip with moderate adhesions around the surrounding tissue consistent with inflammation and acute appendicitis. No perforation was identified. The appendix was dissected free from its surrounding tissues. White 45 mm robotic staple loads were fired along the base of the appendix. The staple line was hemostatic. Hemostasis was checked prior to undocking the robot. The robot was undocked. I re-scrubbed into the case. The specimen was removed from the abdominal cavity with an Endo Catch bag through the 12 mm trocar at the left upper quadrant. All instruments and pneumoperitoneum were evacuated from the abdominal cavity. Local anesthetic was infiltrated to all wounds for postop analgesia. All incisions were also cleansed with diluted hydrogen peroxide. The incisions were closed with 4-0 Monocryl. Exofin glue was applied to the rest of the skin incisions. The patient had tolerated the procedure well. The patient was extubated successfully. The patient was transferred to the postanesthesia care unit in stable condition. Plan - Discharge Summary New Discharge Prescriptions: New Simethicone [Gas-X] 125 mg PO AC-TID PRN #20 capsule PRN Reason: Pain Ibuprofen [Motrin] 600 mg PO Q8HR PRN #30 tab PRN Reason: Pain Acetaminophen Tab [Tylenol Tab] 1,000 mg PO Q6HR PRN #30 tablet PRN Reason: Pain Continue Benzonatate [Tessalon Perle] 200 mg PO TID PRN PRN Reason: Cough Omeprazole 20 mg PO DAILY L.acidoph,Paracasei, B.lactis [Probiotic] 1 cap PO DAILY Docusate [Colace] 200 mg PO DAILY Discharge Medication List Benzonatate [Tessalon Perle] 200 mg PO TID PRN 09/15/24 [History] Docusate [Colace] 200 mg PO DAILY 09/15/24 [History] L.acidoph,Paracasei, B.lactis [Probiotic] 1 cap PO DAILY 09/15/24 [History] Omeprazole 20 mg PO DAILY 09/15/24 [History] Acetaminophen Tab [Tylenol Tab] 1,000 mg PO Q6HR PRN #30 tablet 09/16/24 [Rx] Ibuprofen [Motrin] 600 mg PO Q8HR PRN #30 tab 09/16/24 [Rx] Simethicone [Gas-X] 125 mg PO AC-TID PRN #20 capsule 09/16/24 [Rx] Follow up Appointment(s)/Referral(s): Lizzette Galindo DO [Primary Care Provider] - 1-2 days Lesvia Greer MD [STAFF PHYSICIAN] - 09/20/24 6:35 pm (TELEHEALTH - DR WILL CALL YOU BETWEEN 9 am to 8 pm) Patient Instructions/Handouts: Appendicitis (GEN), Laparoscopic Appendectomy (DC) Activity/Diet/Wound Care/Special Instructions: TELEHEALTH - WILL CALL YOU BETWEEN 9 am to 8 pm NO LONG DRIVES OR AIRPLANE RIDES OVER 60 MINUTES FOR THE NEXT 2 WEEKS, 09/30/24, DUE TO HIGH RISK OF PULMONARY EMBOLISM/DVTs May drive in 72 hrs, 09/19/24 Recommend low-fat diet for the next 2 days. No lifting over 10 pounds in 2 weeks 09/30/24, May shower. No bath tub soaks for two weeks 09/30/24, Diet as tolerated. Use Tylenol, simethicone scheduled for the next 24-48 hours for best pain relief. Use ice along incisions for today to prevent swelling. Discharge Disposition: HOME SELF-CARE
[2024-09-16] MEDS ORDERED: METOPROLOL TARTRATE 5 MG/5 ML VIAL IVP PRN (18:03)
--- NOTE | 2024-09-16 18:10 | P.DS ---
Providers Date of admission: 09/15/24 19:54 Expected date of discharge: 09/16/24 Attending physician: Lesvia Greer Primary care physician: Lizzette Galindo [facility] Course: Postoperative Diagnosis: 1. Acute appendicitis 2. Chronic constipation 3. Obesity due to excess calories, BMI 34.3 4. Gastroesophageal reflux disease 5. History of right breast cancer 6. Postop nausea vomiting INDICATIONS: The patient is a 58-year-old female who presents with protracted course of abdominal pain for at least 1 month. Patient reports having change in bowel habits particular constipation. Given the severe abdominal pain she had an outpatient CT scan. Results came back positive for appendicitis. Patient did return back to the hospital. She was placed on antibiotics and noticed mild improvement of her pain. She underwent robotic laparoscopy demonstrating acute appendicitis. Appendectomy was performed. Postoperatively, patient was stable. Patient verbalized discharge instructions Procedures: Procedure(s) Performed: 1. Robotic-assisted daVinci Xi laparoscopic appendectomy Anesthesia: GETA, local Estimated Blood Loss (ml): 5 Pathology: other (appendix) Condition: stable Disposition: floor Operative Findings: 1. Acute appendicitis without rupture with periappendicitis 2. Terminal ileum unremarkable 3. Cecum unremarkable Patient Condition at Discharge: Good Plan - Discharge Summary New Discharge Prescriptions: New Simethicone [Gas-X] 125 mg PO AC-TID PRN #20 capsule PRN Reason: Pain Ibuprofen [Motrin] 600 mg PO Q8HR PRN #30 tab PRN Reason: Pain Acetaminophen Tab [Tylenol Tab] 1,000 mg PO Q6HR PRN #30 tablet PRN Reason: Pain Continue Benzonatate [Tessalon Perle] 200 mg PO TID PRN PRN Reason: Cough Omeprazole 20 mg PO DAILY L.acidoph,Paracasei, B.lactis [Probiotic] 1 cap PO DAILY Docusate [Colace] 200 mg PO DAILY Discharge Medication List Benzonatate [Tessalon Perle] 200 mg PO TID PRN 09/15/24 [History] Docusate [Colace] 200 mg PO DAILY 09/15/24 [History] L.acidoph,Paracasei, B.lactis [Probiotic] 1 cap PO DAILY 09/15/24 [History] Omeprazole 20 mg PO DAILY 09/15/24 [History] Acetaminophen Tab [Tylenol Tab] 1,000 mg PO Q6HR PRN #30 tablet 09/16/24 [Rx] Ibuprofen [Motrin] 600 mg PO Q8HR PRN #30 tab 09/16/24 [Rx] Simethicone [Gas-X] 125 mg PO AC-TID PRN #20 capsule 09/16/24 [Rx] Follow up Appointment(s)/Referral(s): Lesvia Greer MD [STAFF PHYSICIAN] - 09/20/24 6:35 pm (TELEHEALTH - WILL CALL YOU BETWEEN 9 am to 8 pm) Lizzette Galindo DO [Primary Care Provider] - 1-2 days Patient Instructions/Handouts: Appendicitis (GEN), Laparoscopic Appendectomy (DC) Activity/Diet/Wound Care/Special Instructions: [facility] - WILL CALL YOU BETWEEN 9 am to 8 pm NO LONG DRIVES OR AIRPLANE RIDES OVER 60 MINUTES FOR THE NEXT 2 WEEKS, 09/30/24, DUE TO HIGH RISK OF PULMONARY EMBOLISM/DVTs May drive in 72 hrs, 09/19/24 Recommend low-fat diet for the next 2 days. No lifting over 10 pounds in 2 weeks 09/30/24, May shower. No bath tub soaks for two weeks 09/30/24, Diet as tolerated. Use Tylenol, simethicone scheduled for the next 24-48 hours for best pain relief. Use ice along incisions for today to prevent swelling. Discharge Disposition: HOME SELF-CARE
[2024-09-16] MEDS: METOCLOPRAMIDE 5 MG/ML 2 ML VIAL IVP PRN (18:40)
[2024-09-16 19:59] VITALS: RESP 17
[2024-09-17 07:46] VITALS: BP 115/71; PULSE 68; TEMP 98.4
--- NOTE | 2024-09-17 13:15 | P.PN ---
Progress Note - Text Progress Note Date: 09/17/24 Surgery locums coverage Doing well, eating, BM, comfortable Incisions OK, vitals OK OK for discharge.
== END 2024-09-17 13:30 | disposition home or self-care (01) ==
LOC: EC 16:34 → 6NMEDSUR 19:54
PROVIDERS: ADMIT Surgery Plastic and Reconstructive Surgery; ATTEND Surgery Plastic and Reconstructive Surgery
DX: K35.80 Unspecified acute appendicitis (principal); K36 Other appendicitis; K91.0 Vomiting following gastrointestinal surgery; K59.09 Other constipation; K21.9 Gastro-esophageal reflux disease without esophagitis; E66.09 Other obesity due to excess calories; Z68.34 Body mass index [BMI] 34.0-34.9, adult; Z85.3 Personal history of malignant neoplasm of breast
CPT/HCPCS: 44970; S2900; 36415; 80053; 82150; 83690; 85025; 86850; 86900; 86901; 88304; 96365; 96366; 96372; 99284

== ENCOUNTER → 2024-09-15 | Outpatient (CLI) | payer BC ==
--- NOTE | 2024-09-15 14:26 | CT ---
EXAMINATION TYPE: CT abdomen pelvis w con CT DLP: 1400.4 mGycm, Automated exposure control for dose reduction was used. DATE OF EXAM: 09/15/2024 1:13 PM COMPARISON: CT 03/13/2023, 03/01/2021, CT abdomen and pelvis 04/19/2018, 10/27/2012 CLINICAL INDICATION:Female, 58 years old with history of R10.84 generalized abdominal pain; abd pain TECHNIQUE: Standard CT of the abdomen and pelvis following the administration of 100 cc of Isovue 3 00 IV contrast material and oral contrast. Coronal and sagittal reformats were performed. FINDINGS: LOWER CHEST: Linear scarring and/or atelectasis within the right middle lobe. ABDOMEN LIVER: Unremarkable GALLBLADDER AND BILE DUCTS: Unremarkable. PANCREAS: Lipomatous pseudohypertrophy changes. SPLEEN: Unremarkable. ADRENAL GLANDS: Unremarkable. KIDNEYS AND URETERS: No evidence of hydronephrosis or renal calculus. Bilateral extrarenal pelvises. Kidneys enhance symmetrically. Contrast is demonstrated within both collecting systems on the delayed phase. PELVIS BLADDER: Unremarkable REPRODUCTIVE: The uterus is surgically absent. ABDOMEN & PELVIS STOMACH AND BOWEL: Stomach and duodenum are unremarkable. Pancolonic scattered diverticulosis without evidence for acute diverticulitis. Enteric contrast is reaches the ascending colon. The proximal alessandro endix is mildly dilated measuring up to 9 mm with some surrounding fat stranding which appears new fr om prior exams (series 3, image 61). No surrounding organized fluid collections. No evidence of bowel obstruction. PERITONEUM: No evidence of pneumoperitoneum or free fluid. VASCULATURE: No evidence of aortic aneurysm. Pelvic phleboliths. MUSCULOSKELETAL: No acute osseous abnormalities. Degenerative disease most pronounced at L5-S1. LYMPH NODES: No evidence for lymphadenopathy. SOFT TISSUE/ABDOMINAL WALL: Small fat filled umbilical hernia. IMPRESSION: 1. Mildly dilated appendix with some new surrounding inflammatory changes concerning for acute appen dicitis. No stranding or organized fluid collections or evidence for perforation. Surgical consult is recommended. 2. Pancolonic diverticulosis without evidence for acute diverticulitis. A [place] critical message alert has been initiated for Lizzette Galindo DO via the [employer] Critical Results System on 09/15/2024 2:23 PM. This message alert has been sent to Lizzette Galindo DO via the preferences provided by the clinician for the receipt of Radiology Critical Findings. Message ID [id number]. [facility], , 09/15/2024 2:24 PM
== END | disposition home or self-care (01) ==
LOC: RADCTMAIN 11:29
PROVIDERS: ATTEND Family Medicine
DX: K35.890 Other acute appendicitis without perforation or gangrene (principal); K57.30 Diverticulosis of large intestine without perforation or abscess without bleeding; K42.9 Umbilical hernia without obstruction or gangrene
CPT/HCPCS: 74177; Q9967